=== PATIENT | female | born 1925 | race Asian ===

== ENCOUNTER 2017-08-16 16:00 | Inpatient (IN) | payer MEDICARE, MEDICAID ==
[~2017-08-16] VITALS: Ht 160 cm; Wt 72.6 kg
--- NOTE | 2017-08-16 15:54 | Emergency Room Report ---
History of Present Illness General Source: Patient, Family Member, EMS Present Illness HPI Patient is a 89-year-old female who presented after increased generalized weakness. Patient was reportedly living at home alone. The patient's son was visiting from [place]. Patient poorly had been having increased difficulty with ambulation for the past 2 weeks. Patient was noted to have some complaint of abdominal pain. Allergies: Coded Allergies: No Known Allergies (Unverified , 08/16/17) Patient History Past Medical History: see triage record Reviewed Nursing Documentation: PMH: Agreed, PSxH: Agreed Review of Systems All Other Systems: negative except mentioned in HPI Physical Exam Sp02 EP Interpretation: reviewed, normal General Appearance: normal inspection, alert, moderate distress Head: atraumatic ENT: normal ENT inspection, hearing grossly normal, normal voice Neck: normal inspection, full range of motion, supple, no bony tend Respiratory: normal inspection, lungs clear, normal breath sounds, no respiratory distress, no retraction, no wheezing Cardiovascular #1: no edema, irregularly irregular Gastrointestinal: normal inspection, normal bowel sounds, soft, no guarding, no hernia, tenderness - lower abdomen Genitourinary: no CVA tenderness Musculoskeletal: normal inspection, back normal Neurologic: normal inspection, alert, responsive, speech normal Psychiatric: normal inspection, judgement/insight normal, mood/affect normal Skin: normal inspection, normal color, no rash Medical Decision Making Diagnostic Impression: Primary Impression: Hydronephrosis Additional Impressions: Urinary retention Ovarian cyst Sepsis Lumbar compression fracture A-fib ER Course Patient presented for generalized weakness. Differential diagnosis included was not limited to anemia, urinary tract infection, electrolyte abnormality, hypothyroidism, myocardial infarction, myasthenia gravis, dehydration, among others. Because of complexity of patient's case laboratory testing and imaging studies were ordered.CT of the abdomen pelvis read by radiologist showed markedly distended bladder with mild bilateral hydronephrosis and hydroureter. There is approximately a 6.9 cm right adnexal mass. There is compression of the T11-T12 and L1 vertebrae. The patient was noted to have evidence of renal insufficiency. This maybe related the patient's hydronephrosis from bladder distention. A Joshua catheter was placed by nursing staff a large amount of urine output. The patient was discussed with Dr. Shara Pereira for inpatient management. Laboratory Tests Test 08/16/17 16:10 White Blood Count 6.6 K/UL (4.8-10.8) Red Blood Count 3.81 M/UL (4.20-5.40) L Hemoglobin 11.7 G/DL (12.0-16.0) L Hematocrit 36.7 % (37.0-47.0) L Mean Corpuscular Volume 96 FL (80-99) Mean Corpuscular Hemoglobin 30.7 PG (27.0-31.0) Mean Corpuscular Hemoglobin Concent 31.8 G/DL (32.0-36.0) L Red Cell Distribution Width 13.5 % (11.6-14.8) Platelet Count 276 K/UL (150-450) Mean Platelet Volume 6.0 FL (6.5-10.1) L Neutrophils (%) (Auto) 71.4 % (45.0-75.0) Lymphocytes (%) (Auto) 16.2 % (20.0-45.0) L Monocytes (%) (Auto) 8.9 % (1.0-10.0) Eosinophils (%) (Auto) 2.0 % (0.0-3.0) Basophils (%) (Auto) 1.5 % (0.0-2.0) Prothrombin Time 9.9 SEC (9.30-11.50) Prothrombin Time INR 0.9 (0.9-1.1) PTT 32 SEC (23-33) Sodium Level 139 mEQ/L (135-145) Potassium Level 4.1 mEQ/L (3.4-4.9) Chloride Level 98 mEQ/L (98-107) Carbon Dioxide Level 26 mEQ/L (20-30) Anion Gap 15 (5-15) Blood Urea Nitrogen 52 mg/dL (7-23) H Creatinine 2.0 mg/dL (0.5-0.9) H Estimate Glomerular Filtration Rate mL/min (>60) Glucose Level 113 mg/dL (74-106) H Lactic Acid Level 1.10 mmol/L (0.66-2.22) Calcium Level 9.4 mg/dL (8.6-10.2) Phosphorus Level 5.5 mg/dL (2.5-4.8) H Magnesium Level 2.7 mg/dL (1.7-2.5) H Total Bilirubin 0.7 mg/dL (0.0-1.2) Aspartate Amino Transferase (AST) 16 U/L (5-40) Alanine Aminotransferase (ALT) 6 U/L (3-33) Alkaline Phosphatase 94 U/L (35-104) Total Creatine Kinase 26 U/L (26-140) Creatine Kinase MB < 1.5 ng/mL (< 3.8) Creatine Kinase MB Relative Index Troponin I < 0.30 ng/mL (<=0.30) Pro-B-Type Natriuretic Peptide 99568 pg/mL (0-450) H Total Protein 8.0 g/dL (6.6-8.7) Albumin 3.5 g/dL (3.5-5.2) Globulin 4.5 g/dL Albumin/Globulin Ratio 0.7 (1.0-2.7) L EKG Diagnostic Results Rate: normal Rhythm: other - afib rate [address] ST Segments: no acute changes Rhythm Strip Diag. Results EP Interpretation: yes Rhythm: no PVC's, no ectopy, other - afib Status: unchanged Disposition: ADMITTED INPATIENT Condition: Serious JamisonShantanu Aug 16, 2017 15:54
[2017-08-16] MEDS ORDERED: POTASSIUM 25 M25 ME1 PO (16:03)
[2017-08-16] MEDS ORDERED: POTASSIUM99 M3 PO (16:03)
[2017-08-16] MEDS ORDERED: DOC-Q-LACE100 M1 ORAL (16:03)
[2017-08-16] MEDS ORDERED: XARELTO10 MG ORAL (16:03)
[2017-08-16 16:05] VITALS: BP 138/88
[2017-08-16 16:41] LABS: BASOPHILS % (AUTO) 1.5 % (0.0-2.0); LYMPHOCYTES % (AUTO) 16.2 % (20.0-45.0); MEAN CORPUSCULAR HEMOGLOBIN 30.7 PG (27.0-31.0); MEAN CORPUSCULAR HGB CONC 31.8 G/DL (32.0-36.0); MEAN CORPUSCULAR VOLUME 96 FL (80-99); MONOCYTES % (AUTO) 8.9 % (1.0-10.0); NEUTROPHILS % (AUTO) 71.4 % (45.0-75.0); PLATELET COUNT 276 K/UL (150-450); RED BLOOD COUNT 3.81 M/UL (4.20-5.40); RED CELL DISTRIBUTION WIDTH 13.5 % (11.6-14.8); WHITE BLOOD COUNT 6.6 K/UL (4.8-10.8)
--- NOTE | 2017-08-16 16:41 | Diagnostic Imaging Report ---
Indication: Altered mental status Technique: Contiguous 5 mm thick transaxial imaging of the head obtained in a Siemens Sensation [address] scanner. Soft tissue and bone windows generated. Total Dose length Product (DLP): [address] Dose Index Volume (CTDIvol): 70.38, 0.15 mGy Comparison: none Findings: There is moderate prominence of the ventricles, basal cisterns, and cerebral sulci consistent with atrophy. Moderate, nonspecific, white matter hypoattenuation is noted throughout the brain consistent with chronic small vessel disease. There is no midline shift, edema, acute hemorrhage, mass effect, or abnormal extra-axial fluid collections. Bones and extra osseous soft tissues are unremarkable. There is opacification of the left maxillary sinus. Impression: No acute intracranial bleed, mass effect or edema. Moderate atrophy of the brain. Evidence of chronic small vessel disease involving white matter tracts. Left maxillary sinusitis The CT scanner at [facility] is accredited by the [employer] and the scans are performed using dose optimization techniques as appropriate to a performed exam including Automatic Exposure control.
[2017-08-16] MEDS ORDERED: cefTRIAXone 2 GM in NS 110 ML IVPB ONE (16:45)
[2017-08-16 16:53] LABS: INR 0.9 (0.9-1.1); PROTHROMBIN TIME 9.9 SEC (9.30-11.50)
[2017-08-16 16:57] LABS: ALANINE AMINOTRANSFERASE 6 U/L (3-33); ALBUMIN/GLOBULIN RATIO 0.7 (1.0-2.7); ANION GAP 15 (5-15); ASPARTATE AMINO TRANSFERASE 16 U/L (5-40); CALCIUM 9.4 mg/dL (8.6-10.2); CARBON DIOXIDE 26 mEQ/L (20-30); CHLORIDE 98 mEQ/L (98-107); HEMOLYSIS 2; MAGNESIUM 2.7 mg/dL (1.7-2.5); PHOSPHORUS 5.5 mg/dL (2.5-4.8); POTASSIUM 4.1 mEQ/L (3.4-4.9); SODIUM 139 mEQ/L (135-145); TROPONIN I < 0.30 ng/mL (<=0.30)
[2017-08-16 17:08] LABS: CKMB < 1.5 ng/mL (< 3.8)
[2017-08-16 18:00] VITALS: BP 139/76
[2017-08-16 20:00] VITALS: BP 146/90
[2017-08-16 20:08] LABS: APPEARANCE,URINE SLIGHTLY CLOUDY; KETONES,URINE NEGATIVE (NEGATIVE); LEUKOCYTE ESTERASE ,URINE 2+ (NEGATIVE); NITRITE,URINE NEGATIVE (NEGATIVE); PH,URINE 5 (4.5-8.0); PROTEIN,URINE 1+ (NEGATIVE); UROBILINOGEN,URINE NORMAL MG/DL (0.0-1.0)
[2017-08-16 20:15] VITALS: BP 144/76
[2017-08-16 20:27] LABS: AMORPHOUS SEDIMENT,UR FEW /LPF; BACTERIA,URINE MODERATE /HPF; SQUAMOUS EPITHELIAL CELL,UR FEW /LPF (NONE/OCC)
--- NOTE | 2017-08-16 22:02 | Infectious Diseases Prog Note ---
Assessment/Plan Problems: (1) Acute pyelonephritis Assessment & Plan: will start cefepime empirically pending urine culture results (2) Maxillary sinusitis, acute Assessment & Plan: will start cefepime and metronidazol empiric treatment (3) Sepsis Assessment & Plan: due to the above, will start cefepime and metronidazol , pending blood culture results (4) Adrenal mass Assessment & Plan: recommend MRI and endocrinology eval (5) Hydronephrosis Assessment & Plan: rule out obstructive uropathy , recommend urology eval Subjective Allergies: Coded Allergies: No Known Allergies (Unverified , 08/16/17) Objective Vital Signs Last 24 Hour Vital Signs Date Time Temp Pulse Resp B/P (MAP) Pulse Ox O2 Delivery O2 Flow Rate FiO2 08/16/17 20:00 96 17 146/90 95 Room Air 08/16/17 20:00 97.9 96 19 139/76 97 Room Air 08/16/17 18:00 97.9 102 19 139/76 97 Room Air 08/16/17 16:05 97.9 103 18 138/88 97 Room Air 08/16/17 15:52 97.9 88 20 100/60 97 Room Air Height (Feet): 5 Height (Inches): 3.00 Weight (Pounds): 150 Laboratory Tests Test 08/16/17 16:10 08/16/17 19:25 White Blood Count 6.6 K/UL (4.8-10.8) Red Blood Count 3.81 M/UL (4.20-5.40) L Hemoglobin 11.7 G/DL (12.0-16.0) L Hematocrit 36.7 % (37.0-47.0) L Mean Corpuscular Volume 96 FL (80-99) Mean Corpuscular Hemoglobin 30.7 PG (27.0-31.0) Mean Corpuscular Hemoglobin Concent 31.8 G/DL (32.0-36.0) L Red Cell Distribution Width 13.5 % (11.6-14.8) Platelet Count 276 K/UL (150-450) Mean Platelet Volume 6.0 FL (6.5-10.1) L Neutrophils (%) (Auto) 71.4 % (45.0-75.0) Lymphocytes (%) (Auto) 16.2 % (20.0-45.0) L Monocytes (%) (Auto) 8.9 % (1.0-10.0) Eosinophils (%) (Auto) 2.0 % (0.0-3.0) Basophils (%) (Auto) 1.5 % (0.0-2.0) Prothrombin Time 9.9 SEC (9.30-11.50) Prothromb Time International Ratio 0.9 (0.9-1.1) Activated Partial Thromboplast Time 32 SEC (23-33) Sodium Level 139 mEQ/L (135-145) Potassium Level 4.1 mEQ/L (3.4-4.9) Chloride Level 98 mEQ/L (98-107) Carbon Dioxide Level 26 mEQ/L (20-30) Anion Gap 15 (5-15) Blood Urea Nitrogen 52 mg/dL (7-23) H Creatinine 2.0 mg/dL (0.5-0.9) H Estimat Glomerular Filtration Rate mL/min (>60) Glucose Level 113 mg/dL (74-106) H Lactic Acid Level 1.10 mmol/L (0.66-2.22) Calcium Level 9.4 mg/dL (8.6-10.2) Phosphorus Level 5.5 mg/dL (2.5-4.8) H Magnesium Level 2.7 mg/dL (1.7-2.5) H Total Bilirubin 0.7 mg/dL (0.0-1.2) Aspartate Amino Transf (AST/SGOT) 16 U/L (5-40) Alanine Aminotransferase (ALT/SGPT) 6 U/L (3-33) Alkaline Phosphatase 94 U/L (35-104) Total Creatine Kinase 26 U/L (26-140) Creatine Kinase MB < 1.5 ng/mL (< 3.8) Creatine Kinase MB Relative Index Troponin I < 0.30 ng/mL (<=0.30) Pro-B-Type Natriuretic Peptide 15174 pg/mL (0-450) H Total Protein 8.0 g/dL (6.6-8.7) Albumin 3.5 g/dL (3.5-5.2) Globulin 4.5 g/dL Albumin/Globulin Ratio 0.7 (1.0-2.7) L Urine Color Yellow Urine Appearance Slightly cloudy Urine pH 5 (4.5-8.0) Urine Specific [place] 1.015 (1.005-1.035) Urine Protein 1+ (NEGATIVE) H Urine Glucose (UA) Negative (NEGATIVE) Urine Ketones Negative (NEGATIVE) Urine Occult Blood 4+ (NEGATIVE) H Urine Nitrite Negative (NEGATIVE) Urine Bilirubin Negative (NEGATIVE) Urine Urobilinogen Normal MG/DL (0.0-1.0) Urine Leukocyte Esterase 2+ (NEGATIVE) H Urine RBC 10-15 /HPF (0 - 2) H Urine WBC 5-10 /HPF (0 - 2) H Urine Squamous Epithelial Cells Few /LPF (NONE/OCC) Urine Amorphous Sediment Few /LPF (NONE) H Urine Bacteria Moderate /HPF (NONE) H Diann Delgadillo M.D. Aug 16, 2017 22:02
--- NOTE | 2017-08-16 22:44 | Cardiology Progress Note ---
Assessment/Plan Assessment/Plan The patient is seen and examined, full consult note will be dictated. Objective Last 24 Hour Vital Signs Date Time Temp Pulse Resp B/P (MAP) Pulse Ox O2 Delivery O2 Flow Rate FiO2 08/16/17 20:00 96 17 146/90 95 Room Air 08/16/17 20:00 97.9 96 19 139/76 97 Room Air 08/16/17 18:00 97.9 102 19 139/76 97 Room Air 08/16/17 16:05 97.9 103 18 138/88 97 Room Air 08/16/17 15:52 97.9 88 20 100/60 97 Room Air Intake and Output 08/16/17 08/17/17 19:00 07:00 Intake Total 1110 ml Output Total 1100 ml Balance 1110 ml -1100 ml Intake IV Total 1110 ml Output Urine Total 1100 ml Laboratory Tests Test 08/16/17 16:10 08/16/17 19:25 White Blood Count 6.6 K/UL (4.8-10.8) Red Blood Count 3.81 M/UL (4.20-5.40) L Hemoglobin 11.7 G/DL (12.0-16.0) L Hematocrit 36.7 % (37.0-47.0) L Mean Corpuscular Volume 96 FL (80-99) Mean Corpuscular Hemoglobin 30.7 PG (27.0-31.0) Mean Corpuscular Hemoglobin Concent 31.8 G/DL (32.0-36.0) L Red Cell Distribution Width 13.5 % (11.6-14.8) Platelet Count 276 K/UL (150-450) Mean Platelet Volume 6.0 FL (6.5-10.1) L Neutrophils (%) (Auto) 71.4 % (45.0-75.0) Lymphocytes (%) (Auto) 16.2 % (20.0-45.0) L Monocytes (%) (Auto) 8.9 % (1.0-10.0) Eosinophils (%) (Auto) 2.0 % (0.0-3.0) Basophils (%) (Auto) 1.5 % (0.0-2.0) Prothrombin Time 9.9 SEC (9.30-11.50) Prothromb Time International Ratio 0.9 (0.9-1.1) Activated Partial Thromboplast Time 32 SEC (23-33) Sodium Level 139 mEQ/L (135-145) Potassium Level 4.1 mEQ/L (3.4-4.9) Chloride Level 98 mEQ/L (98-107) Carbon Dioxide Level 26 mEQ/L (20-30) Anion Gap 15 (5-15) Blood Urea Nitrogen 52 mg/dL (7-23) H Creatinine 2.0 mg/dL (0.5-0.9) H Estimat Glomerular Filtration Rate mL/min (>60) Glucose Level 113 mg/dL (74-106) H Lactic Acid Level 1.10 mmol/L (0.66-2.22) Calcium Level 9.4 mg/dL (8.6-10.2) Phosphorus Level 5.5 mg/dL (2.5-4.8) H Magnesium Level 2.7 mg/dL (1.7-2.5) H Total Bilirubin 0.7 mg/dL (0.0-1.2) Aspartate Amino Transf (AST/SGOT) 16 U/L (5-40) Alanine Aminotransferase (ALT/SGPT) 6 U/L (3-33) Alkaline Phosphatase 94 U/L (35-104) Total Creatine Kinase 26 U/L (26-140) Creatine Kinase MB < 1.5 ng/mL (< 3.8) Creatine Kinase MB Relative Index Troponin I < 0.30 ng/mL (<=0.30) Pro-B-Type Natriuretic Peptide 15352 pg/mL (0-450) H Total Protein 8.0 g/dL (6.6-8.7) Albumin 3.5 g/dL (3.5-5.2) Globulin 4.5 g/dL Albumin/Globulin Ratio 0.7 (1.0-2.7) L Urine Color Yellow Urine Appearance Slightly cloudy Urine pH 5 (4.5-8.0) Urine Specific [place] 1.015 (1.005-1.035) Urine Protein 1+ (NEGATIVE) H Urine Glucose (UA) Negative (NEGATIVE) Urine Ketones Negative (NEGATIVE) Urine Occult Blood 4+ (NEGATIVE) H Urine Nitrite Negative (NEGATIVE) Urine Bilirubin Negative (NEGATIVE) Urine Urobilinogen Normal MG/DL (0.0-1.0) Urine Leukocyte Esterase 2+ (NEGATIVE) H Urine RBC 10-15 /HPF (0 - 2) H Urine WBC 5-10 /HPF (0 - 2) H Urine Squamous Epithelial Cells Few /LPF (NONE/OCC) Urine Amorphous Sediment Few /LPF (NONE) H Urine Bacteria Moderate /HPF (NONE) H SARITA DOTSON Aug 16, 2017 22:44
[2017-08-16] MEDS: metroNIDAZOLE 500mg tab ORAL SCH (22:56)
[2017-08-17] VITALS: BP 150/78
[2017-08-17 04:00] VITALS: BP 136/75
[2017-08-17] MEDS: metroNIDAZOLE 500mg tab ORAL SCH ×3 (06:20→21:53)
[2017-08-17 08:28] LABS: BASOPHILS % (AUTO) 1.8 % (0.0-2.0); LYMPHOCYTES % (AUTO) 16.2 % (20.0-45.0); MEAN CORPUSCULAR HEMOGLOBIN 31.4 PG (27.0-31.0); MEAN CORPUSCULAR HGB CONC 32.5 G/DL (32.0-36.0); MEAN CORPUSCULAR VOLUME 97 FL (80-99); MEAN PLATELET VOLUME 6.5 FL (6.5-10.1); MONOCYTES % (AUTO) 6.6 % (1.0-10.0); NEUTROPHILS % (AUTO) 73.4 % (45.0-75.0); PLATELET COUNT 276 K/UL (150-450); RED BLOOD COUNT 3.97 M/UL (4.20-5.40); RED CELL DISTRIBUTION WIDTH 13.8 % (11.6-14.8); WHITE BLOOD COUNT 5.4 K/UL (4.8-10.8)
[2017-08-17 08:32] VITALS: BP 143/71
[2017-08-17 08:35] LABS: ALANINE AMINOTRANSFERASE 6 U/L (3-33); ALBUMIN/GLOBULIN RATIO 0.6 (1.0-2.7); ANION GAP 13 (5-15); ASPARTATE AMINO TRANSFERASE 18 U/L (5-40); CARBON DIOXIDE 25 mEQ/L (20-30); CHLORIDE 98 mEQ/L (98-107); CREATININE 1.6 mg/dL (0.5-0.9); HEMOLYSIS 11; POTASSIUM 3.7 mEQ/L (3.4-4.9); SODIUM 136 mEQ/L (135-145); TOTAL PROTEIN 7.8 g/dL (6.6-8.7)
[2017-08-17] MEDS ORDERED: Cefepime HCl 2 GM in D5W 110 ML IVPB SCH (09:00)
--- NOTE | 2017-08-17 10:58 | Diagnostic Imaging Report ---
Indication: Dyspnea Comparison: None A single view chest radiograph was obtained. Findings: Interstitial edema is present with prominent vascularity and heart size. The bones are moderately osteopenic. Aorta is calcified. Impression: Interstitial edema
[2017-08-17] MEDS: Cefepime 1gm in D5W 55ml IVPB SCH (11:32)
[2017-08-17 11:36] VITALS: BP 155/95
--- NOTE | 2017-08-17 11:44 | Consultation ---
Consult Note Consult Note asked to eval for renal failure- HPI Patient is a 89-year-old female who presented after increased generalized weakness. Patient was reportedly living at home alone. The patient's son was visiting from [place]. Patient poorly had been having increased difficulty with ambulation for the past 2 weeks. Patient was noted to have some complaint of abdominal pain. Allergies: Coded Allergies: No Known Allergies (Unverified , 08/16/17) examined- data reviewed Assessment/Plan status; - Renal failure due to Hydronephrosis , Urinary retention and Ovarian cysts - Acute pyelonephritis - Maxillary sinusitis, acute - Sepsis - Adrenal mass - Hydronephrosis - Lumbar compression Fx - At fib Plan: Slow hydrate- avoid nephrotoxics- Gastric support- Keep BP and BS in check per orders THALIA MOREIRA Aug 17, 2017 11:44
--- NOTE | 2017-08-17 12:18 | Consultation ---
History of Present Illness General Date patient seen: Aug 17, 2017 Chief Complaint: General Complaint Present Illness Allergies: Coded Allergies: No Known Allergies (Unverified , 08/16/17) Medication History Discontinued Medications Docusate Sodium (Doc-Q-Lace), 100 MG ORAL TWICE A DAY, (Reported) Discontinued Reason: MD discontinued med Potassium Bicarbonate/Cit Ac (Potassium 25 Meq Tablet Eff), 8 MEQ PO EVERY OTHER DAY, (Reported) Discontinued Reason: MD discontinued med Potassium Gluconate (Potassium), 99 MG PO, (Reported) Discontinued Reason: MD discontinued med Rivaroxaban (Xarelto*), 15 MG ORAL DAILY, (Reported) Discontinued Reason: MD discontinued med Patient History Healthcare decision maker Resuscitation status Full Code Advanced Directive on File Physical Exam Last 24 Hour Vital Signs Date Time Temp Pulse Resp B/P (MAP) Pulse Ox O2 Delivery O2 Flow Rate FiO2 08/17/17 11:36 97.0 75 18 155/95 97 Room Air 08/17/17 08:32 97.0 91 20 143/71 95 Room Air 08/17/17 08:07 84 08/17/17 04:00 97.7 84 20 136/75 95 Room Air 08/17/17 04:00 101 08/17/17 00:00 86 08/17/17 00:00 97.5 69 18 150/78 92 Room Air 08/16/17 20:27 93 08/16/17 20:15 97.7 96 20 144/76 Room Air 08/16/17 20:00 96 17 146/90 95 Room Air 08/16/17 20:00 97.9 96 19 139/76 97 Room Air 08/16/17 18:00 97.9 102 19 139/76 97 Room Air 08/16/17 16:05 97.9 103 18 138/88 97 Room Air 08/16/17 15:52 97.9 88 20 100/60 97 Room Air Intake and Output 08/17/17 08/18/17 19:00 07:00 Intake Total 120 ml Balance 120 ml Intake Oral 120 ml Laboratory Tests Test 08/16/17 16:10 08/16/17 19:25 08/17/17 07:50 White Blood Count 6.6 K/UL (4.8-10.8) 5.4 K/UL (4.8-10.8) Red Blood Count 3.81 M/UL (4.20-5.40) L 3.97 M/UL (4.20-5.40) L Hemoglobin 11.7 G/DL (12.0-16.0) L 12.5 G/DL (12.0-16.0) Hematocrit 36.7 % (37.0-47.0) L 38.4 % (37.0-47.0) Mean Corpuscular Volume 96 FL (80-99) 97 FL (80-99) Mean Corpuscular Hemoglobin 30.7 PG (27.0-31.0) 31.4 PG (27.0-31.0) H Mean Corpuscular Hemoglobin Concent 31.8 G/DL (32.0-36.0) L 32.5 G/DL (32.0-36.0) Red Cell Distribution Width 13.5 % (11.6-14.8) 13.8 % (11.6-14.8) Platelet Count 276 K/UL (150-450) 276 K/UL (150-450) Mean Platelet Volume 6.0 FL (6.5-10.1) L 6.5 FL (6.5-10.1) Neutrophils (%) (Auto) 71.4 % (45.0-75.0) 73.4 % (45.0-75.0) Lymphocytes (%) (Auto) 16.2 % (20.0-45.0) L 16.2 % (20.0-45.0) L Monocytes (%) (Auto) 8.9 % (1.0-10.0) 6.6 % (1.0-10.0) Eosinophils (%) (Auto) 2.0 % (0.0-3.0) 2.0 % (0.0-3.0) Basophils (%) (Auto) 1.5 % (0.0-2.0) 1.8 % (0.0-2.0) Prothrombin Time 9.9 SEC (9.30-11.50) Prothromb Time International Ratio 0.9 (0.9-1.1) Activated Partial Thromboplast Time 32 SEC (23-33) Sodium Level 139 mEQ/L (135-145) 136 mEQ/L (135-145) Potassium Level 4.1 mEQ/L (3.4-4.9) 3.7 mEQ/L (3.4-4.9) Chloride Level 98 mEQ/L (98-107) 98 mEQ/L (98-107) Carbon Dioxide Level 26 mEQ/L (20-30) 25 mEQ/L (20-30) Anion Gap 15 (5-15) 13 (5-15) Blood Urea Nitrogen 52 mg/dL (7-23) H 41 mg/dL (7-23) H Creatinine 2.0 mg/dL (0.5-0.9) H 1.6 mg/dL (0.5-0.9) H Estimat Glomerular Filtration Rate mL/min (>60) mL/min (>60) Glucose Level 113 mg/dL (74-106) H 126 mg/dL (74-106) H Lactic Acid Level 1.10 mmol/L (0.66-2.22) Calcium Level 9.4 mg/dL (8.6-10.2) 9.0 mg/dL (8.6-10.2) Phosphorus Level 5.5 mg/dL (2.5-4.8) H Magnesium Level 2.7 mg/dL (1.7-2.5) H Total Bilirubin 0.7 mg/dL (0.0-1.2) 0.5 mg/dL (0.0-1.2) Aspartate Amino Transf (AST/SGOT) 16 U/L (5-40) 18 U/L (5-40) Alanine Aminotransferase (ALT/SGPT) 6 U/L (3-33) 6 U/L (3-33) Alkaline Phosphatase 94 U/L (35-104) 95 U/L (35-104) Total Creatine Kinase 26 U/L (26-140) Creatine Kinase MB < 1.5 ng/mL (< 3.8) Creatine Kinase MB Relative Index Troponin I < 0.30 ng/mL (<=0.30) Pro-B-Type Natriuretic Peptide 16342 pg/mL (0-450) H Total Protein 8.0 g/dL (6.6-8.7) 7.8 g/dL (6.6-8.7) Albumin 3.5 g/dL (3.5-5.2) 3.1 g/dL (3.5-5.2) L Globulin 4.5 g/dL 4.7 g/dL Albumin/Globulin Ratio 0.7 (1.0-2.7) L 0.6 (1.0-2.7) L Urine Color Yellow Urine Appearance Slightly cloudy Urine pH 5 (4.5-8.0) Urine Specific [place] 1.015 (1.005-1.035) Urine Protein 1+ (NEGATIVE) H Urine Glucose (UA) Negative (NEGATIVE) Urine Ketones Negative (NEGATIVE) Urine Occult Blood 4+ (NEGATIVE) H Urine Nitrite Negative (NEGATIVE) Urine Bilirubin Negative (NEGATIVE) Urine Urobilinogen Normal MG/DL (0.0-1.0) Urine Leukocyte Esterase 2+ (NEGATIVE) H Urine RBC 10-15 /HPF (0 - 2) H Urine WBC 5-10 /HPF (0 - 2) H Urine Squamous Epithelial Cells Few /LPF (NONE/OCC) Urine Amorphous Sediment Few /LPF (NONE) H Urine Bacteria Moderate /HPF (NONE) H Microbiology Date/Time Source Procedure Growth Status 08/16/17 19:25 Urine,Clean Catch Urine Culture - Preliminary NO GROWTH Resulted Height (Feet): 5 Height (Inches): 3.00 Weight (Pounds): 160 Medications Current Medications Medications (Trade) Dose Ordered Sig/Trisha Route PRN Reason Start Time Stop Time Status Last Admin Dose Admin Acetaminophen (Tylenol) 650 mg Q4H PRN ORAL Mild Pain/Temp > 100.5 08/16/17 23:15 09/15/17 23:14 Amlodipine Besylate (Norvasc) 5 mg DAILY ORAL 08/17/17 12:00 09/16/17 11:59 Cefepime HCl 1 gm/ Dextrose 55 ml @ 110 mls/hr Q24H IVPB 08/17/17 09:00 08/24/17 08:59 08/17/17 11:32 Dextrose (Dextrose 50%) STAT PRN IV Hypoglycemia 08/16/17 23:15 09/15/17 23:14 Docusate Sodium (Colace) 100 mg THREE TIMES A DAY ORAL 08/17/17 13:00 09/16/17 12:59 Metronidazole (Flagyl) 500 mg Q8HR ORAL 08/16/17 22:15 08/23/17 22:14 08/17/17 06:20 Pantoprazole (Protonix) 40 mg DAILY ORAL 08/17/17 12:05 09/16/17 12:04 Sodium Chloride 1,000 ml @ 50 mls/hr Q20H IV 08/17/17 12:00 09/16/17 11:59 Assessment/Plan Assessment/Plan (1) Hydronephrosis (2) Lumbar compression fracture (3) Generalized weakness Seen dictated FELISHA TRAN Aug 17, 2017 12:18
[2017-08-17] MEDS: Docusate 100mg cap ORAL SCH ×2 (13:23→18:26)
--- NOTE | 2017-08-17 15:11 | Infectious Diseases Prog Note ---
Assessment/Plan Problems: (1) Acute pyelonephritis Assessment & Plan: on cefepime empirically pending urine culture results (2) Maxillary sinusitis, acute Assessment & Plan: on cefepime and metronidazol empiric treatment (3) Sepsis Assessment & Plan: due to the above, continue cefepime and metronidazol , pending blood culture results (4) Adrenal mass Assessment & Plan: recommend MRI and endocrinology eval (5) Hydronephrosis Assessment & Plan: rule out obstructive uropathy , recommend urology eval Subjective ROS Limited/Unobtainable: Yes Allergies: Coded Allergies: No Known Allergies (Unverified , 08/16/17) Subjective she was awake, and comfortable, up in bed, not in distress, afebrile Objective Vital Signs Last 24 Hour Vital Signs Date Time Temp Pulse Resp B/P (MAP) Pulse Ox O2 Delivery O2 Flow Rate FiO2 08/17/17 13:31 85 155/85 08/17/17 11:36 97.0 75 18 155/95 97 Room Air 08/17/17 08:32 97.0 91 20 143/71 95 Room Air 08/17/17 08:07 84 08/17/17 04:00 97.7 84 20 136/75 95 Room Air 08/17/17 04:00 101 08/17/17 00:00 86 08/17/17 00:00 97.5 69 18 150/78 92 Room Air 08/16/17 20:27 93 08/16/17 20:15 97.7 96 20 144/76 Room Air 08/16/17 20:00 96 17 146/90 95 Room Air 08/16/17 20:00 97.9 96 19 139/76 97 Room Air 08/16/17 18:00 97.9 102 19 139/76 97 Room Air 08/16/17 16:05 97.9 103 18 138/88 97 Room Air 08/16/17 15:52 97.9 88 20 100/60 97 Room Air Height (Feet): 5 Height (Inches): 3.00 Weight (Pounds): 160 General Appearance: WD/WN, no acute distress HEENT: normocephalic, atraumatic, anicteric, mucous membranes moist, EOMI, pharynx normal, supple, no JVD Respiratory/Chest: chest wall non-tender, lungs clear, normal breath sounds, no respiratory distress, no accessory muscle use Cardiovascular: normal peripheral pulses, normal rate, regular rhythm, no gallop/murmur, no JVD Abdomen: normal bowel sounds, soft, non tender, no organomegaly, non distended , no mass Extremities: no cyanosis, no clubbing Skin: no rash, no lesions, no ulcers Neurologic/Psychiatric: alert Microbiology Date/Time Source Procedure Growth Status 08/16/17 19:25 Urine,Clean Catch Urine Culture - Preliminary NO GROWTH Resulted Laboratory Tests Test 08/16/17 16:10 08/16/17 19:25 08/17/17 07:50 White Blood Count 6.6 K/UL (4.8-10.8) 5.4 K/UL (4.8-10.8) Red Blood Count 3.81 M/UL (4.20-5.40) L 3.97 M/UL (4.20-5.40) L Hemoglobin 11.7 G/DL (12.0-16.0) L 12.5 G/DL (12.0-16.0) Hematocrit 36.7 % (37.0-47.0) L 38.4 % (37.0-47.0) Mean Corpuscular Volume 96 FL (80-99) 97 FL (80-99) Mean Corpuscular Hemoglobin 30.7 PG (27.0-31.0) 31.4 PG (27.0-31.0) H Mean Corpuscular Hemoglobin Concent 31.8 G/DL (32.0-36.0) L 32.5 G/DL (32.0-36.0) Red Cell Distribution Width 13.5 % (11.6-14.8) 13.8 % (11.6-14.8) Platelet Count 276 K/UL (150-450) 276 K/UL (150-450) Mean Platelet Volume 6.0 FL (6.5-10.1) L 6.5 FL (6.5-10.1) Neutrophils (%) (Auto) 71.4 % (45.0-75.0) 73.4 % (45.0-75.0) Lymphocytes (%) (Auto) 16.2 % (20.0-45.0) L 16.2 % (20.0-45.0) L Monocytes (%) (Auto) 8.9 % (1.0-10.0) 6.6 % (1.0-10.0) Eosinophils (%) (Auto) 2.0 % (0.0-3.0) 2.0 % (0.0-3.0) Basophils (%) (Auto) 1.5 % (0.0-2.0) 1.8 % (0.0-2.0) Prothrombin Time 9.9 SEC (9.30-11.50) Prothromb Time International Ratio 0.9 (0.9-1.1) Activated Partial Thromboplast Time 32 SEC (23-33) Sodium Level 139 mEQ/L (135-145) 136 mEQ/L (135-145) Potassium Level 4.1 mEQ/L (3.4-4.9) 3.7 mEQ/L (3.4-4.9) Chloride Level 98 mEQ/L (98-107) 98 mEQ/L (98-107) Carbon Dioxide Level 26 mEQ/L (20-30) 25 mEQ/L (20-30) Anion Gap 15 (5-15) 13 (5-15) Blood Urea Nitrogen 52 mg/dL (7-23) H 41 mg/dL (7-23) H Creatinine 2.0 mg/dL (0.5-0.9) H 1.6 mg/dL (0.5-0.9) H Estimat Glomerular Filtration Rate mL/min (>60) mL/min (>60) Glucose Level 113 mg/dL (74-106) H 126 mg/dL (74-106) H Lactic Acid Level 1.10 mmol/L (0.66-2.22) Calcium Level 9.4 mg/dL (8.6-10.2) 9.0 mg/dL (8.6-10.2) Phosphorus Level 5.5 mg/dL (2.5-4.8) H Magnesium Level 2.7 mg/dL (1.7-2.5) H Total Bilirubin 0.7 mg/dL (0.0-1.2) 0.5 mg/dL (0.0-1.2) Aspartate Amino Transf (AST/SGOT) 16 U/L (5-40) 18 U/L (5-40) Alanine Aminotransferase (ALT/SGPT) 6 U/L (3-33) 6 U/L (3-33) Alkaline Phosphatase 94 U/L (35-104) 95 U/L (35-104) Total Creatine Kinase 26 U/L (26-140) Creatine Kinase MB < 1.5 ng/mL (< 3.8) Creatine Kinase MB Relative Index Troponin I < 0.30 ng/mL (<=0.30) Pro-B-Type Natriuretic Peptide 08415 pg/mL (0-450) H Total Protein 8.0 g/dL (6.6-8.7) 7.8 g/dL (6.6-8.7) Albumin 3.5 g/dL (3.5-5.2) 3.1 g/dL (3.5-5.2) L Globulin 4.5 g/dL 4.7 g/dL Albumin/Globulin Ratio 0.7 (1.0-2.7) L 0.6 (1.0-2.7) L Urine Color Yellow Urine Appearance Slightly cloudy Urine pH 5 (4.5-8.0) Urine Specific [place] 1.015 (1.005-1.035) Urine Protein 1+ (NEGATIVE) H Urine Glucose (UA) Negative (NEGATIVE) Urine Ketones Negative (NEGATIVE) Urine Occult Blood 4+ (NEGATIVE) H Urine Nitrite Negative (NEGATIVE) Urine Bilirubin Negative (NEGATIVE) Urine Urobilinogen Normal MG/DL (0.0-1.0) Urine Leukocyte Esterase 2+ (NEGATIVE) H Urine RBC 10-15 /HPF (0 - 2) H Urine WBC 5-10 /HPF (0 - 2) H Urine Squamous Epithelial Cells Few /LPF (NONE/OCC) Urine Amorphous Sediment Few /LPF (NONE) H Urine Bacteria Moderate /HPF (NONE) H Current Medications Medications (Trade) Dose Ordered Sig/Trisha Route PRN Reason Start Time Stop Time Status Last Admin Dose Admin Acetaminophen (Tylenol) 650 mg Q4H PRN ORAL Mild Pain/Temp > 100.5 08/16/17 23:15 09/15/17 23:14 Amlodipine Besylate (Norvasc) 5 mg DAILY ORAL 08/17/17 12:00 09/16/17 11:59 08/17/17 13:31 Cefepime HCl 1 gm/ Dextrose 55 ml @ 110 mls/hr Q24H IVPB 10/4/17 09:00 08/24/17 08:59 08/17/17 11:32 Dextrose (Dextrose 50%) STAT PRN IV Hypoglycemia 08/16/17 23:15 09/15/17 23:14 Docusate Sodium (Colace) 100 mg THREE TIMES A DAY ORAL 08/17/17 13:00 09/16/17 12:59 08/17/17 13:23 Metronidazole (Flagyl) 500 mg Q8HR ORAL 08/16/17 22:15 08/23/17 22:14 08/17/17 13:42 Pantoprazole (Protonix) 40 mg DAILY ORAL 08/17/17 12:05 09/16/17 12:04 08/17/17 13:23 Sodium Chloride 1,000 ml @ 50 mls/hr Q20H IV 08/17/17 12:00 09/16/17 11:59 08/17/17 13:24 Diann Delgadillo M.D. Aug 17, 2017 15:11
[2017-08-17 16:00] VITALS: BP 154/60
--- NOTE | 2017-08-17 17:48 | Consultation ---
History of Present Illness General Date patient seen: Aug 17, 2017 Time patient seen: 17:43 Chief Complaint: Urinary retention Referring physician: Daniel Reason for Consultation: retention, bilateral hydro nephrosis Present Illness HPI patient with progressive weakness, difficulty ambulation. Found to be in retention after CT exam. No real complaints outside of weakness. Allergies: Coded Allergies: No Known Allergies (Unverified , 08/16/17) Medication History Discontinued Medications Docusate Sodium (Doc-Q-Lace), 100 MG ORAL TWICE A DAY, (Reported) Discontinued Reason: MD discontinued med Potassium Bicarbonate/Cit Ac (Potassium 25 Meq Tablet Eff), 8 MEQ PO EVERY OTHER DAY, (Reported) Discontinued Reason: MD discontinued med Potassium Gluconate (Potassium), 99 MG PO, (Reported) Discontinued Reason: MD discontinued med Rivaroxaban (Xarelto*), 15 MG ORAL DAILY, (Reported) Discontinued Reason: MD discontinued med Patient History Limited by: medical condition History Provided By: Medical Record Healthcare decision maker Resuscitation status Full Code Advanced Directive on File Past Medical/Surgical History Past Medical/Surgical History: (1) Ovarian cyst (2) A-fib Review of Systems Constitutional: Reports: weakness Eye: Denies: no symptoms, see HPI, eye pain, blurred vision, tearing, double vision, nose pain, nose congestion, acuity changes, discharge, other ENT: Denies: no symptoms, see HPI, ear pain, ear discharge, nose pain, nose congestion, throat pain, throat swelling, mouth pain, hearing loss, nasal discharge, other Respiratory: Denies: no symptoms, see HPI, cough, orthopnea, shortness of breath, stridor, wheezing, TODD, sputum, other Cardiovascular: Denies: no symptoms, see HPI, chest pain, edema, palpitations, syncope, PND, other Gastrointestinal: Denies: no symptoms, see HPI, abdominal pain, constipation, diarrhea, nausea, vomiting, melena, hematemesis, other Genitourinary: Reports: dysuria Musculoskeletal: Denies: no symptoms, see HPI, back pain, gout, joint pain, joint swelling, muscle pain, muscle stiffness, other Skin: Denies: no symptoms, see HPI, rash, change in color, change in hair/nails , dryness, lesions, other Psychiatric: Denies: no symptoms, see HPI, prior hx, anxiety, depressed feelings, emotional problems, SI, HI, hallucinations, other Neurological: Denies: no symptoms, see HPI, headache, numbness, paresthesia, seizure, tingling, tremors, focal weakness, syncope, dizziness, other Endocrine: Denies: no symptoms, see HPI, excessive sweating, flushing, intolerance to temperature, increased thirst, increased urine, unexplained weight loss, other Hematologic/Lymphatic: Denies: no symptoms, see HPI, anemia, blood clots, easy bleeding, easy bruising, swollen glands, diathesis, other Physical Exam General Appearance: mild distress Respiratory/Chest: normal breath sounds Cardiovascular/Chest: normal rate, regular rhythm Abdomen: non tender, soft Genitourinary/Rectal: bill Neurologic: alert Last 24 Hour Vital Signs Date Time Temp Pulse Resp B/P (MAP) Pulse Ox O2 Delivery O2 Flow Rate FiO2 08/17/17 16:00 97.2 65 18 154/60 97 Room Air 08/17/17 13:31 85 155/85 08/17/17 11:49 86 08/17/17 11:36 97.0 75 18 155/95 97 Room Air 08/17/17 08:32 97.0 91 20 143/71 95 Room Air 08/17/17 08:07 84 08/17/17 04:00 97.7 84 20 136/75 95 Room Air 08/17/17 04:00 101 08/17/17 00:00 86 08/17/17 00:00 97.5 69 18 150/78 92 Room Air 08/16/17 20:27 93 08/16/17 20:15 97.7 96 20 144/76 Room Air 08/16/17 20:00 96 17 146/90 95 Room Air 08/16/17 20:00 97.9 96 19 139/76 97 Room Air 08/16/17 18:00 97.9 102 19 139/76 97 Room Air Intake and Output 08/17/17 08/18/17 19:00 07:00 Intake Total 240 ml Balance 240 ml Intake Oral 240 ml Laboratory Tests Test 08/16/17 19:25 08/17/17 07:50 Urine Color Yellow Urine Appearance Slightly cloudy Urine pH 5 (4.5-8.0) Urine Specific [place] 1.015 (1.005-1.035) Urine Protein 1+ (NEGATIVE) H Urine Glucose (UA) Negative (NEGATIVE) Urine Ketones Negative (NEGATIVE) Urine Occult Blood 4+ (NEGATIVE) H Urine Nitrite Negative (NEGATIVE) Urine Bilirubin Negative (NEGATIVE) Urine Urobilinogen Normal MG/DL (0.0-1.0) Urine Leukocyte Esterase 2+ (NEGATIVE) H Urine RBC 10-15 /HPF (0 - 2) H Urine WBC 5-10 /HPF (0 - 2) H Urine Squamous Epithelial Cells Few /LPF (NONE/OCC) Urine Amorphous Sediment Few /LPF (NONE) H Urine Bacteria Moderate /HPF (NONE) H White Blood Count 5.4 K/UL (4.8-10.8) Red Blood Count 3.97 M/UL (4.20-5.40) L Hemoglobin 12.5 G/DL (12.0-16.0) Hematocrit 38.4 % (37.0-47.0) Mean Corpuscular Volume 97 FL (80-99) Mean Corpuscular Hemoglobin 31.4 PG (27.0-31.0) H Mean Corpuscular Hemoglobin Concent 32.5 G/DL (32.0-36.0) Red Cell Distribution Width 13.8 % (11.6-14.8) Platelet Count 276 K/UL (150-450) Mean Platelet Volume 6.5 FL (6.5-10.1) Neutrophils (%) (Auto) 73.4 % (45.0-75.0) Lymphocytes (%) (Auto) 16.2 % (20.0-45.0) L Monocytes (%) (Auto) 6.6 % (1.0-10.0) Eosinophils (%) (Auto) 2.0 % (0.0-3.0) Basophils (%) (Auto) 1.8 % (0.0-2.0) Sodium Level 136 mEQ/L (135-145) Potassium Level 3.7 mEQ/L (3.4-4.9) Chloride Level 98 mEQ/L (98-107) Carbon Dioxide Level 25 mEQ/L (20-30) Anion Gap 13 (5-15) Blood Urea Nitrogen 41 mg/dL (7-23) H Creatinine 1.6 mg/dL (0.5-0.9) H Estimat Glomerular Filtration Rate mL/min (>60) Glucose Level 126 mg/dL (74-106) H Calcium Level 9.0 mg/dL (8.6-10.2) Total Bilirubin 0.5 mg/dL (0.0-1.2) Aspartate Amino Transf (AST/SGOT) 18 U/L (5-40) Alanine Aminotransferase (ALT/SGPT) 6 U/L (3-33) Alkaline Phosphatase 95 U/L (35-104) Total Protein 7.8 g/dL (6.6-8.7) Albumin 3.1 g/dL (3.5-5.2) L Globulin 4.7 g/dL Albumin/Globulin Ratio 0.6 (1.0-2.7) L Microbiology Date/Time Source Procedure Growth Status 08/16/17 19:25 Urine,Clean Catch Urine Culture - Preliminary NO GROWTH Resulted Height (Feet): 5 Height (Inches): 3.00 Weight (Pounds): 160 Medications Current Medications Medications (Trade) Dose Ordered Sig/Trisha Route PRN Reason Start Time Stop Time Status Last Admin Dose Admin Acetaminophen (Tylenol) 650 mg Q4H PRN ORAL Mild Pain/Temp > 100.5 08/16/17 23:15 09/15/17 23:14 Amlodipine Besylate (Norvasc) 5 mg DAILY ORAL 08/17/17 12:00 09/16/17 11:59 08/17/17 13:31 Cefepime HCl 1 gm/ Dextrose 55 ml @ 110 mls/hr Q24H IVPB 08/17/17 09:00 08/24/17 08:59 08/17/17 11:32 Dextrose (Dextrose 50%) STAT PRN IV Hypoglycemia 08/16/17 23:15 09/15/17 23:14 Docusate Sodium (Colace) 100 mg THREE TIMES A DAY ORAL 08/17/17 13:00 09/16/17 12:59 08/17/17 13:23 Metronidazole (Flagyl) 500 mg Q8HR ORAL 08/16/17 22:15 08/23/17 22:14 08/17/17 13:42 Pantoprazole (Protonix) 40 mg DAILY ORAL 08/17/17 12:05 09/16/17 12:04 08/17/17 13:23 Sodium Chloride 1,000 ml @ 50 mls/hr Q20H IV 08/17/17 12:00 09/16/17 11:59 08/17/17 13:[address] bilateral hydro, distended bladder Assessment/Plan Status: stable Assessment/Plan 89 yo female, weakness. Unclear etiology but likely causing/related to retention. Hydronephrosis secondary to poor emptying of bladder. Continue bill. Seems unlikely compression fractures could be causing neurogenic retention but will await MRI. In mean time, recommend continuing bill till creatinine nadirs. 1. continue bill 2. likely need outpatient urodynamics to evaluate for true bladder dysfunction 3. follow up urine culture. 4. likely home with bill. Brad Bravo M.D. Aug 17, 2017 17:48
[2017-08-17 20:00] VITALS: BP 141/67
--- NOTE | 2017-08-17 23:29 | Cardiology Progress Note ---
Assessment/Plan Assessment/Plan 1. Chronic atrial fibrillation, will resume Xarelto once AMBER resolved, 2D echocardiography to assess LV systolic function and LA size. 2. Acute kidney injury, due to obstructive uropathy, improving. 3. Lumbar vertebral compression fracture. Subjective Subjective Atrial fibrillation with ventricular response around 85-95. Objective Last 24 Hour Vital Signs Date Time Temp Pulse Resp B/P (MAP) Pulse Ox O2 Delivery O2 Flow Rate FiO2 08/17/17 20:00 97.7 94 22 141/67 Room Air 08/17/17 16:00 88 08/17/17 16:00 97.2 65 18 154/60 97 Room Air 08/17/17 13:31 85 155/85 08/17/17 11:49 86 08/17/17 11:36 97.0 75 18 155/95 97 Room Air 08/17/17 08:32 97.0 91 20 143/71 95 Room Air 08/17/17 08:07 84 08/17/17 04:00 97.7 84 20 136/75 95 Room Air 08/17/17 04:00 101 08/17/17 00:00 86 08/17/17 00:00 97.5 69 18 150/78 92 Room Air Intake and Output 08/17/17 08/18/17 19:00 07:00 Intake Total 645 ml Output Total 400 ml Balance 245 ml Intake Oral 340 ml IV Total 305 ml Output Urine Total 400 ml Laboratory Tests Test 08/17/17 07:50 White Blood Count 5.4 K/UL (4.8-10.8) Red Blood Count 3.97 M/UL (4.20-5.40) L Hemoglobin 12.5 G/DL (12.0-16.0) Hematocrit 38.4 % (37.0-47.0) Mean Corpuscular Volume 97 FL (80-99) Mean Corpuscular Hemoglobin 31.4 PG (27.0-31.0) H Mean Corpuscular Hemoglobin Concent 32.5 G/DL (32.0-36.0) Red Cell Distribution Width 13.8 % (11.6-14.8) Platelet Count 276 K/UL (150-450) Mean Platelet Volume 6.5 FL (6.5-10.1) Neutrophils (%) (Auto) 73.4 % (45.0-75.0) Lymphocytes (%) (Auto) 16.2 % (20.0-45.0) L Monocytes (%) (Auto) 6.6 % (1.0-10.0) Eosinophils (%) (Auto) 2.0 % (0.0-3.0) Basophils (%) (Auto) 1.8 % (0.0-2.0) Sodium Level 136 mEQ/L (135-145) Potassium Level 3.7 mEQ/L (3.4-4.9) Chloride Level 98 mEQ/L (98-107) Carbon Dioxide Level 25 mEQ/L (20-30) Anion Gap 13 (5-15) Blood Urea Nitrogen 41 mg/dL (7-23) H Creatinine 1.6 mg/dL (0.5-0.9) H Estimat Glomerular Filtration Rate mL/min (>60) Glucose Level 126 mg/dL (74-106) H Calcium Level 9.0 mg/dL (8.6-10.2) Total Bilirubin 0.5 mg/dL (0.0-1.2) Aspartate Amino Transf (AST/SGOT) 18 U/L (5-40) Alanine Aminotransferase (ALT/SGPT) 6 U/L (3-33) Alkaline Phosphatase 95 U/L (35-104) Total Protein 7.8 g/dL (6.6-8.7) Albumin 3.1 g/dL (3.5-5.2) L Globulin 4.7 g/dL Albumin/Globulin Ratio 0.6 (1.0-2.7) L Microbiology Date/Time Source Procedure Growth Status 08/16/17 19:25 Urine,Clean Catch Urine Culture - Preliminary NO GROWTH Resulted Objective HEENT: atraumatic, normocephalic, PERRLA, EOMI. Neck: Negative JVD, no carotid bruit, carotid upstroke 2+ B/L CVS: Normal S1S2, irregularly irregular rhythm, 2/6 MSM at LSB Lungs: Clear with no rales or rhonchi Gastrointestinal: normal bowel sounds, soft, no guarding, suprapubic tenderness Genitourinary: no CVA tenderness Musculoskeletal: no edema, clubbing or cyanosis. Neurologic: normal inspection, alert, responsive, speech normal SARITA DOTSON Aug 17, 2017 23:29
--- NOTE | 2017-08-17 23:45 | Consultation ---
DATE OF CONSULTATION: 08/17/2017 PAIN MANAGEMENT CONSULTATION CONSULTING PHYSICIAN: Rory Bullard M.D. REFERRING PHYSICIAN: Shara Sanchez M.D. PHYSICIAN BRANCH CHIEF: Abad Morrison CHIEF COMPLAINT: Bilateral hip pain. History Of Present Illness: This is an 89-year-old female, who is being seen on the telemetry floor of [facility] for initial comprehensive pain management consultation. The patient was admitted under the care of Dr. Sanchez due to increasing generalized weakness and difficulty with ambulation for the past two weeks, more so with walking, reporting that the pain in her hips has been over a year. It is an off and on pain that is currently rated 8. However, at this time, she is not having any pain. Pain is worse with movement, walking, and standing and is reduced with rest. Upon admission to the hospital in the ER, the patient went through a CT scan of the abdomen and pelvis and found to have T11, T12, and L1 vertebral body compression fractures. The patient had hydronephrosis with distended bladder and a right adnexal mass and urinary catheter was placed and found to have a large amount of urine output. Again, the patient at this time, is in no acute distress, however, due to compression fractures and hip pain, we will order MRI of lumbar spine to further assess for the compression fractures. PAST MEDICAL HISTORY: Weakness and hypertension. MEDICATIONS: Docusate, potassium, and Xarelto. ALLERGIES: No known drug allergies. Social History: Denies smoking tobacco, drinking alcohol, or drug abuse. Review Of Systems: Denies rash, fever, chills, sweating, dizziness, drowsiness, blurred vision, sore throat, or change in weight. No shortness of breath or chest pain. No nausea, vomiting, diarrhea, or blood in the stool or urine. No bowel or bladder incontinence. No dysuria. PHYSICAL EXAMINATION: General: Alert, awake, and oriented. The patient is Greek and is being intubated at this time. HEENT: PERRLA. Neck: Range of motion is full in all directions. No tenderness to paracervical muscles. No adenopathy. LUNGS: Clear. HEART: Regular. ABDOMEN: Obese. Back: Range of motion is decreased in flexion and extension with tenderness to paraspinal muscles. No tenderness to trapezius or rhomboid muscles. Extremities: Upper extremity range of motion is full in all directions. Motor is intact. No cyanosis. No clubbing. No edema. Sensory is intact. Reflexes are not obtainable. Lower extremity range of motion is decreased due to the patient's clinical condition. No cyanosis. No clubbing. No edema. Sensory is intact. Reflexes are not obtainable. No adenopathy. Assessment And Plan: This is an 89-year-old female with hydronephrosis, lumbar compression fracture, and generalized weakness. We will order an MRI of the lumbar spine without contrast to further assess for the compression fractures. The patient will continue on Tylenol 650 mg tablet every 8 hours as needed for pain. The patient was discussed with Dr. Bullard and Dr. Bullard concurred. We will follow the patient. Thank you very much for the courtesy of this consultation. Rory Bullard M.D. PHIL Morrison DR: JARAD JOB#: [id number] CC:
[2017-08-18] VITALS (8 sets, daily range): BP systolic 124–154; BP diastolic 69–91
--- NOTE | 2017-08-18 | History and Physical Report ---
DATE OF ADMISSION: 08/16/2017 History Of Present Illness: The patient is admitted for weakness as well as difficulty ambulating. CT of the abdomen and pelvis showed bladder distension and bilateral hydronephrosis and a 6.9 cm adnexal mass as well as compression fracture at T11/T12 and L1. The patient was complaining of back pain. The patient also speaks Serbian and does not speak [place]ian, however, does have complaint of back pain. Denies nausea, vomiting, or diarrhea. No fevers, chills, night sweats, runny nose, or cough. Past Medical History: Possible opiates, history of possible adnexal mass, history of arrhythmia, history of ovarian cyst, and hypertension. PAST SURGICAL HISTORY: The patient had cholecystectomy. MEDICATIONS: She cannot tell me the name of medications. ALLERGIES: No known allergies. SOCIAL HISTORY: Unable to obtain. FAMILY HISTORY: Noncontributory. Review Of Systems: Unable to obtain, however, does complain of back pain, but otherwise,HEENT: Denies headaches. Respiratory: Denies shortness of breath. Denies cough. Cardiovascular: Denies chest pain. Gastrointestinal: Denies nausea, vomiting, or diarrhea. She does have back pain. Central Nervous System: No change in vision or speech pattern, however, the patient is a relatively poor historian. PHYSICAL EXAMINATION: Vital Signs: Temperature 97.7 degrees, pulse is 84, and blood pressure is 136/75. HEENT: PERRLA. NECK: Supple without lymphadenopathy. CHEST: Clear to auscultation. Gastrointestinal: Soft, nontender, and nondistended. No organomegaly. Extremities: No edema. Reflexes are equal on both sides. Moves all four extremities. NEUROLOGIC: Oriented to name. Laboratory Data: WBC of 6.6, hemoglobin 11.7, platelet count 276,000. Sodium 139, potassium 4.1, BUN of 52, creatinine 2, and glucose of 113, and also has elevated BNP of 15,420. ASSESSMENT AND PLAN: 1. Acute renal failure. 2. Dehydration. 3. Generalized weakness. 4. Difficulty ambulating. 5. Bladder distension, bilateral hydronephrosis, and adnexal mass. 6. Compression fracture at T1 as well as L1. Plan: I have asked Dr. Ruiz, Dr. Rhodes, Dr. Bullard, Dr. Gomez, Dr. Bravo, and Dr. Delgadillo to see the patient for the above-mentioned diagnoses and treatment as well as for possible UTI. Shara Sanchez M.D. DR: KAREN JOB#: [id number] CC:
--- NOTE | 2017-08-18 01:00 | Consultation ---
DATE OF CONSULTATION: 08/17/2017 INFECTIOUS DISEASE CONSULTATION CONSULTING PHYSICIAN: Diann Delgadillo M.D. REQUESTING PHYSICIAN: Shara Sanchez M.D. Reason For Consultation: Acute pyelonephritis, sepsis, recommendation for antibiotic treatment with possible sinusitis. History Of Present Illness: The patient is an 89-year-old female with past medical history unknown, who presented to [facility]. She was brought in from her own home by her son for generalized weakness. His son was visiting from [place]. The patient has been having difficulty ambulation for over 2 weeks. She had some abdominal discomfort as per the son. In the emergency room, the patient was found to have significant hydronephrosis with urine retention and ovarian cyst. She also had significant urinary tract infection, so she was started on IV antibiotic therapy and I was consulted by the primary provider for antibiotic treatment and further management. As of note, the patient is nonverbal, demented, cannot provide any history. History was mainly obtained from the medical record and nursing staff. PAST MEDICAL HISTORY: Undocumented in the record. PAST SURGICAL HISTORY: Unclear. ALLERGIES: No known drug allergy. Medications: The patient received ceftriaxone in the emergency room. For the rest of the medications, please refer to MAR. FAMILY HISTORY: Unable to obtain. Social History: The patient lives alone at home. No recent drugs, tobacco, or alcohol. Review Of Systems: Unable to obtain at this point. The patient cannot provide any history. PHYSICAL EXAMINATION: Vital Signs: Temperature 97.9, pulse 102, respirations 19, blood pressure 139/76, and pulse oximetry 97% on room air. General: An elderly female, lying in bed, awake, alert, comfortable, nonverbal, not in distress. HEENT: Normocephalic and atraumatic. Pupils are reactive to light. Moist oral mucosa. NECK: Supple. No lymphadenopathy. CARDIOVASCULAR: Regular rate and rhythm. No murmur or gallop. Lungs: She had diminished breathing sounds at the bases. No wheezing or rhonchi. Abdomen: Soft, nontender, and nondistended. Positive bowel sounds. No hepatosplenomegaly or ascites. EXTREMITIES: No edema or cyanosis. SKIN: No rash or hives. Laboratory Data: Labs showed white count of 6.6, hemoglobin of 11.7, and platelet count of 276,000. BUN of 52 and creatinine of 2. AST of 16 and ALT of 6. Urinalysis showed +2 leukocyte esterase, WBC 5 to 10, and moderate amount of bacteria. MICROBIOLOGY: Pending so far. Imaging Studies: Chest x-ray showed interstitial edema. Head CT scan showed no intracranial bleed, mass effect, or edema. Moderate atrophy of the brain. Left maxillary sinusitis. ASSESSMENT AND RECOMMENDATION: 1. Acute pyelonephritis. We will start cefepime empiric treatment pending urine culture results. Suspect due to obstructive uropathy and hydronephrosis. 2. Maxillary sinusitis. We will start cefepime and metronidazole empiric treatment. Evidence on CT scan of the head. 3. Sepsis due to the above. We will start cefepime and metronidazole pending blood culture results. 4. Adrenal mass. Recommend MRI and endocrinology evaluation. 5. Hydronephrosis, rule out obstructive uropathy. Recommend urology evaluation and ultrasound. Thank you for the consult. Infectious diseases will continue to follow. Diann Delgadillo M.D. DR: CONNIE JOB#: [id number] CC:
[2017-08-18] MEDS ORDERED: 1/2 NS 1000ml 250 ML IV ONE (04:00)
[2017-08-18] MEDS: metroNIDAZOLE 500mg tab ORAL SCH ×3 (06:01→21:48)
[2017-08-18] MEDS: Cefepime 1gm in D5W 55ml IVPB SCH (08:30)
[2017-08-18] MEDS: Docusate 100mg cap ORAL SCH ×3 (08:30→18:19)
[2017-08-18] MEDS ORDERED: Metoprolol Succinate XL 50mg tab ORAL SCH (09:00)
--- NOTE | 2017-08-18 09:50 | Diagnostic Imaging Report ---
Indication: Back pain Technique: MRI examination of the Lumbar spine was performed in a 1.5 Bambi magnet. Sequences obtained include sagittal and axial T1 and T2 fast spin echo, and sagittal STIR. No IV gadolinium was given Comparison: none Findings: There is evidence of an acute vertebral compression fracture involving the T11 vertebra. This is probably best demonstrated on T2-weighted images which shows a linear slightly oblique a low signal intensity focus through the vertebral body with surrounding T1 hypointense/T2 hyperintense edema. There is mild loss of height of the vertebral body itself. There is no involvement of the pedicles or posterior elements. There is no retropulsion identified. The visualized distal part of the spinal cord is normal in appearance. The tip of the conus medullaris is seen at L1. At L1 there is a central intra-endplate depression or Schmorl's node which does exhibit some adjacent marrow edema. Edema is probably associated with the Schmorl's node and degenerative process. There is no definite acute fracture. There is some bone marrow edema as well at the inferior anterior endplate osteophyte of L1. Multilevel desiccation and narrowing of intervertebral discs are demonstrated. Mild multilevel endplate and facet osteophyte formation noted. At L4-5 there is central and lateral recess stenosis. L5-S1 demonstrates narrowing of the lateral recess. The bladder is moderately distended. Impression: Acute vertebral compression fracture of T11 with a mild loss of height, about 20%. No involvement of pedicles or posterior elements. No retropulsion or cord/neural impingement. Schmorl's node with some associated bone marrow edema in the inferior endplate L1. Old compression fractures at T12 and L1 noted as well. Moderate degenerative disease involving the vertebral endplates, discs, facets. L4-5 notable for lateral recess, central stenosis. L5-S1 notable for lateral recess stenosis. Distended urinary bladder
--- NOTE | 2017-08-18 11:35 | General Progress Note ---
Assessment/Plan Status: stable Assessment/Plan - Renal failure due to Hydronephrosis , Urinary retention and Ovarian cysts - Acute pyelonephritis - Maxillary sinusitis, acute - Sepsis - Adrenal mass - Hydronephrosis - Lumbar compression Fx - At fib Plan: Slow hydrate- today's labs pending avoid nephrotoxics- Gastric support- Keep BP and BS in check per orders Subjective ROS Limited/Unobtainable: No Constitutional: Reports: malaise, weakness Allergies: Coded Allergies: No Known Allergies (Unverified , 08/16/17) Objective Last 24 Hour Vital Signs Date Time Temp Pulse Resp B/P (MAP) Pulse Ox O2 Delivery O2 Flow Rate FiO2 08/18/17 08:30 65 151/74 08/18/17 08:29 65 151/74 08/18/17 08:00 83 08/18/17 07:27 98.4 65 18 151/74 96 Room Air 08/18/17 07:21 97.0 74 18 144/77 93 Room Air 08/18/17 05:00 105 142/76 96 Room Air 08/18/17 04:15 130 153/100 08/18/17 04:00 123 08/18/17 04:00 98.0 103 24 132/71 94 Room Air 08/18/17 00:22 97.9 82 20 154/83 97 Room Air 08/18/17 00:00 90 08/17/17 20:00 104 08/17/17 20:00 97.7 94 22 141/67 Room Air 08/17/17 16:00 88 08/17/17 16:00 97.2 65 18 154/60 97 Room Air 08/17/17 13:31 85 155/85 08/17/17 11:49 86 08/17/17 11:36 97.0 75 18 155/95 97 Room Air Intake and Output 08/18/17 08/19/17 19:00 07:00 Intake Total 230 ml Balance 230 ml IV Total 230 ml Laboratory Tests 08/17/17 22:10: Urine Random Sodium 46 Height (Feet): 5 Height (Inches): 3.00 Weight (Pounds): 160 General Appearance: no apparent distress Objective no change in PE THALIA MOREIRA Aug 18, 2017 11:35
[2017-08-18 13:19] LABS: BASOPHILS % (AUTO) 1.5 % (0.0-2.0); EOSINOPHILS % (AUTO) 2.1 % (0.0-3.0); LYMPHOCYTES % (AUTO) 12.3 % (20.0-45.0); MEAN CORPUSCULAR HEMOGLOBIN 30.1 PG (27.0-31.0); MEAN CORPUSCULAR HGB CONC 31.5 G/DL (32.0-36.0); MEAN CORPUSCULAR VOLUME 95 FL (80-99); MEAN PLATELET VOLUME 6.3 FL (6.5-10.1); MONOCYTES % (AUTO) 7.5 % (1.0-10.0); NEUTROPHILS % (AUTO) 76.7 % (45.0-75.0); PLATELET COUNT 285 K/UL (150-450); RED BLOOD COUNT 3.95 M/UL (4.20-5.40); RED CELL DISTRIBUTION WIDTH 13.3 % (11.6-14.8); WHITE BLOOD COUNT 6.1 K/UL (4.8-10.8)
[2017-08-18 13:27] LABS: ALANINE AMINOTRANSFERASE 6 U/L (3-33); ALBUMIN/GLOBULIN RATIO 0.8 (1.0-2.7); ANION GAP 14 (5-15); ASPARTATE AMINO TRANSFERASE 14 U/L (5-40); CARBON DIOXIDE 23 mEQ/L (20-30); CHLORIDE 104 mEQ/L (98-107); CHOLESTEROL 126 mg/dL (< 200); CHOLESTEROL/HDL RATIO 2.1 (3.3-4.4); CREATININE 1.3 mg/dL (0.5-0.9); CRP QUANT 4.3 mg/dL (< 0.5); LDL CHOLESTEROL CALC 55 mg/dL (60-99); PHOSPHORUS 3.5 mg/dL (2.5-4.8); POTASSIUM 4.1 mEQ/L (3.4-4.9); SODIUM 141 mEQ/L (135-145); TOTAL PROTEIN 7.4 g/dL (6.6-8.7); URIC ACID 7.8 mg/dL (3.0-7.5)
[2017-08-18 13:39] LABS: FERRITIN 232 ng/mL (13-150)
[2017-08-18 14:02] LABS: HEMOGLOBIN A1C 5.6 % (< 6.0)
[2017-08-18 14:28] LABS: HEMOLYSIS 0; IRON 56 ug/dL (37-145); TOTAL IRON BINDING CAPACITY 221 ug/dL (250-400)
--- NOTE | 2017-08-18 16:02 | Infectious Diseases Prog Note ---
Assessment/Plan Problems: (1) Acute pyelonephritis Assessment & Plan: on cefepime empirically pending urine culture results (2) Maxillary sinusitis, acute Assessment & Plan: on cefepime and metronidazol empiric treatment (3) Sepsis Assessment & Plan: due to the above, continue cefepime and metronidazol , pending blood culture results (4) Adrenal mass Assessment & Plan: recommend MRI and endocrinology eval (5) Hydronephrosis Assessment & Plan: rule out obstructive uropathy , recommend urology eval Subjective ROS Limited/Unobtainable: Yes Allergies: Coded Allergies: No Known Allergies (Unverified , 08/16/17) Subjective she was awake, and comfortable, up in bed, not in distress, afebrile Objective Vital Signs Last 24 Hour Vital Signs Date Time Temp Pulse Resp B/P (MAP) Pulse Ox O2 Delivery O2 Flow Rate FiO2 08/18/17 12:00 95 08/18/17 11:50 97.7 88 18 152/79 92 Room Air 08/18/17 08:30 65 151/74 08/18/17 08:29 65 151/74 08/18/17 08:00 83 08/18/17 07:27 98.4 65 18 151/74 96 Room Air 08/18/17 07:21 97.0 74 18 144/77 93 Room Air 08/18/17 05:00 105 142/76 96 Room Air 08/18/17 04:15 130 153/100 08/18/17 04:00 123 08/18/17 04:00 98.0 103 24 132/71 94 Room Air 08/18/17 00:22 97.9 82 20 154/83 97 Room Air 08/18/17 00:00 90 08/17/17 20:00 104 08/17/17 20:00 97.7 94 22 141/67 Room Air Height (Feet): 5 Height (Inches): 3.00 Weight (Pounds): 160 General Appearance: WD/WN, no acute distress HEENT: normocephalic, atraumatic, anicteric, mucous membranes moist Respiratory/Chest: chest wall non-tender, lungs clear, normal breath sounds, no respiratory distress, no accessory muscle use Cardiovascular: normal peripheral pulses, normal rate, regular rhythm, no gallop/murmur, no JVD Abdomen: normal bowel sounds, soft, non tender, no organomegaly, non distended , no mass, no scars Extremities: no cyanosis, no clubbing Skin: no rash, no lesions, no ulcers Neurologic/Psychiatric: alert, oriented x 3 Lymphatic: no neck adenopathy, no groin adenopathy Microbiology Date/Time Source Procedure Growth Status 08/16/17 16:10 Blood Blood Culture - Preliminary NO GROWTH AFTER 24 HOURS Resulted 08/16/17 16:10 Blood Blood Culture - Preliminary NO GROWTH AFTER 24 HOURS Resulted 08/16/17 19:25 Urine,Clean Catch Urine Culture - Preliminary NO GROWTH AFTER 24 HOURS Resulted Laboratory Tests Test 08/17/17 22:10 08/18/17 13:00 Urine Random Sodium 46 mmol/L White Blood Count 6.1 K/UL (4.8-10.8) Red Blood Count 3.95 M/UL (4.20-5.40) L Hemoglobin 11.9 G/DL (12.0-16.0) L Hematocrit 37.7 % (37.0-47.0) Mean Corpuscular Volume 95 FL (80-99) Mean Corpuscular Hemoglobin 30.1 PG (27.0-31.0) Mean Corpuscular Hemoglobin Concent 31.5 G/DL (32.0-36.0) L Red Cell Distribution Width 13.3 % (11.6-14.8) Platelet Count 285 K/UL (150-450) Mean Platelet Volume 6.3 FL (6.5-10.1) L Neutrophils (%) (Auto) 76.7 % (45.0-75.0) H Lymphocytes (%) (Auto) 12.3 % (20.0-45.0) L Monocytes (%) (Auto) 7.5 % (1.0-10.0) Eosinophils (%) (Auto) 2.1 % (0.0-3.0) Basophils (%) (Auto) 1.5 % (0.0-2.0) Sodium Level 141 mEQ/L (135-145) Potassium Level 4.1 mEQ/L (3.4-4.9) Chloride Level 104 mEQ/L (98-107) Carbon Dioxide Level 23 mEQ/L (20-30) Anion Gap 14 (5-15) Blood Urea Nitrogen 31 mg/dL (7-23) H Creatinine 1.3 mg/dL (0.5-0.9) H Estimat Glomerular Filtration Rate mL/min (>60) Glucose Level 111 mg/dL (74-106) H Hemoglobin A1c 5.6 % (< 6.0) Uric Acid 7.8 mg/dL (3.0-7.5) H Calcium Level 9.0 mg/dL (8.6-10.2) Phosphorus Level 3.5 mg/dL (2.5-4.8) Magnesium Level 2.0 mg/dL (1.7-2.5) Iron Level 56 ug/dL (37-145) Total Iron Binding Capacity 221 ug/dL (250-400) L Percent Iron Saturation 25 % (15-50) Unsaturated Iron Binding 165 ug/dL (112-346) Ferritin 232 ng/mL (13-150) H Total Bilirubin 0.7 mg/dL (0.0-1.2) Gamma Glutamyl Transpeptidase 26 U/L (5-36) Aspartate Amino Transf (AST/SGOT) 14 U/L (5-40) Alanine Aminotransferase (ALT/SGPT) 6 U/L (3-33) Alkaline Phosphatase 82 U/L (35-104) Total Creatine Kinase 34 U/L (26-140) C-Reactive Protein, Quantitative 4.3 mg/dL (< 0.5) H Pro-B-Type Natriuretic Peptide 73053 pg/mL (0-450) H Total Protein 7.4 g/dL (6.6-8.7) Albumin 3.3 g/dL (3.5-5.2) L Globulin 4.1 g/dL Albumin/Globulin Ratio 0.8 (1.0-2.7) L Triglycerides Level 48 mg/dL (< 150) Cholesterol Level 126 mg/dL (< 200) LDL Cholesterol 55 mg/dL (60-99) L HDL Cholesterol 61 mg/dL (> 60) H Cholesterol/HDL Ratio 2.1 (3.3-4.4) L Vitamin B12 Level 620 pg/mL (211-946) Folate Pending Thyroid Stimulating Hormone (TSH) 1.920 uIU/mL (0.300-4.500) Current Medications Medications (Trade) Dose Ordered Sig/Trisha Route PRN Reason Start Time Stop Time Status Last Admin Dose Admin Acetaminophen (Tylenol) 650 mg Q4H PRN ORAL Mild Pain/Temp > 100.5 08/16/17 23:15 09/15/17 23:14 Amlodipine Besylate (Norvasc) 5 mg BID ORAL 08/18/17 18:00 09/16/17 11:59 Cefepime HCl 1 gm/ Dextrose 55 ml @ 110 mls/hr Q24H IVPB 08/17/17 09:00 08/24/17 08:59 08/18/17 08:30 Dextrose (Dextrose 50%) STAT PRN IV Hypoglycemia 08/16/17 23:15 09/15/17 23:14 Docusate Sodium (Colace) 100 mg THREE TIMES A DAY ORAL 08/17/17 13:00 09/16/17 12:59 08/18/17 13:09 Metoprolol Tartrate (Lopressor) 100 mg EVERY 12 HOURS ORAL 08/18/17 09:00 09/17/17 08:59 08/18/17 08:29 Metronidazole (Flagyl) 500 mg Q8HR ORAL 08/16/17 22:15 08/23/17 22:14 08/18/17 13:09 Pantoprazole (Protonix) 40 mg DAILY ORAL 08/17/17 12:05 09/16/17 12:04 08/18/17 08:29 Sodium Chloride 1,000 ml @ 50 mls/hr Q20H IV 08/17/17 12:00 09/16/17 11:59 08/18/17 06:01 Diann Delgadillo M.D. Aug 18, 2017 16:02
--- NOTE | 2017-08-18 18:18 | General Progress Note ---
Assessment/Plan Problem List: (1) Sepsis ICD Codes: A41.9 - Sepsis, unspecified organism SNOMED: 28900395 (2) Lumbar compression fracture ICD Codes: S32.000A - Wedge compression fracture of unspecified lumbar vertebra , initial encounter for closed fracture SNOMED: 283670833 (3) Acute pyelonephritis ICD Codes: N10 - Acute pyelonephritis SNOMED: 29227314 (4) Adrenal mass ICD Codes: E27.9 - Disorder of adrenal gland, unspecified SNOMED: 687508836 (5) Generalized weakness ICD Codes: R53.1 - Weakness SNOMED: 46874805 Status: progressing Assessment/Plan afebrile spine fracture reviewed chart and labs sepsis abx per id Subjective ROS Limited/Unobtainable: Yes Constitutional: Reports: no symptoms Allergies: Coded Allergies: No Known Allergies (Unverified , 08/16/17) Objective Last 24 Hour Vital Signs Date Time Temp Pulse Resp B/P (MAP) Pulse Ox O2 Delivery O2 Flow Rate FiO2 08/18/17 16:00 97.7 95 21 124/69 93 Room Air 08/18/17 12:00 95 08/18/17 11:50 97.7 88 18 152/79 92 Room Air 08/18/17 08:30 65 151/74 08/18/17 08:29 65 151/74 08/18/17 08:00 83 08/18/17 07:27 98.4 65 18 151/74 96 Room Air 08/18/17 07:21 97.0 74 18 144/77 93 Room Air 08/18/17 05:00 105 142/76 96 Room Air 08/18/17 04:15 130 153/100 08/18/17 04:00 123 08/18/17 04:00 98.0 103 24 132/71 94 Room Air 08/18/17 00:22 97.9 82 20 154/83 97 Room Air 08/18/17 00:00 90 08/17/17 20:00 104 08/17/17 20:00 97.7 94 22 141/67 Room Air Intake and Output 08/18/17 08/19/17 19:00 07:00 Intake Total 580 ml Output Total 450 ml Balance 130 ml IV Total 580 ml Output Urine Total 450 ml # Bowel Movements 1 Laboratory Tests 08/17/17 22:10: Urine Random Sodium 46 08/18/17 13:00: White Blood Count 6.1, Red Blood Count 3.95L, Hemoglobin 11.9L, Hematocrit 37.7 , Mean Corpuscular Volume 95, Mean Corpuscular Hemoglobin 30.1, Mean Corpuscular Hemoglobin Concent 31.5L, Red Cell Distribution Width 13.3, Platelet Count 285, Mean Platelet Volume 6.3L, Neutrophils (%) (Auto) 76.7H, Lymphocytes (%) (Auto) 12.3L, Monocytes (%) (Auto) 7.5, Eosinophils (%) (Auto) 2.1, Basophils (%) (Auto) 1.5, Sodium Level 141, Potassium Level 4.1, Chloride Level 104, Carbon Dioxide Level 23, Anion Gap 14, Blood Urea Nitrogen 31H, Creatinine 1.3H, Estimat Glomerular Filtration Rate , Glucose Level 111H, Hemoglobin A1c 5.6, Uric Acid 7.8H, Calcium Level 9.0, Phosphorus Level 3.5, Magnesium Level 2.0, Iron Level 56, Total Iron Binding Capacity 221L, Percent Iron Saturation 25, Unsaturated Iron Binding 165, Ferritin 232H, Total Bilirubin 0.7, Gamma Glutamyl Transpeptidase 26, Aspartate Amino Transf (AST/ SGOT) 14, Alanine Aminotransferase (ALT/SGPT) 6, Alkaline Phosphatase 82, Total Creatine Kinase 34, C-Reactive Protein, Quantitative 4.3H, Pro-B-Type Natriuretic Peptide 47794Z, Total Protein 7.4, Albumin 3.3L, Globulin 4.1, Albumin/Globulin Ratio 0.8L, Triglycerides Level 48, Cholesterol Level 126, LDL Cholesterol 55L, HDL Cholesterol 61H, Cholesterol/HDL Ratio 2.1L, Vitamin B12 Level 620, Folate [Pending], Thyroid Stimulating Hormone (TSH) 1.920 Height (Feet): 5 Height (Inches): 3.00 Weight (Pounds): 160 Abdomen: soft Shara Sanchez MD Aug 18, 2017 18:18
--- NOTE | 2017-08-18 22:18 | Cardiology Progress Note ---
Assessment/Plan Assessment/Plan 1. Chronic atrial fibrillation, on metoprolol, consider anticoag therapy. 2. Acute kidney injury, due to obstructive uropathy, improving. 3. Hypertension, continue amlodipine and metoprolol. 4. Lumbar vertebral compression fracture. Subjective Subjective Atrial fibrillation with ventricular response around 81-83. Objective Last 24 Hour Vital Signs Date Time Temp Pulse Resp B/P (MAP) Pulse Ox O2 Delivery O2 Flow Rate FiO2 08/18/17 21:48 81 148/87 08/18/17 20:00 97.3 83 20 153/91 94 Room Air 08/18/17 18:19 95 124/69 08/18/17 16:00 82 08/18/17 16:00 97.7 95 21 124/69 93 Room Air 08/18/17 12:00 95 08/18/17 11:50 97.7 88 18 152/79 92 Room Air 08/18/17 08:30 65 151/74 08/18/17 08:29 65 151/74 08/18/17 08:00 83 08/18/17 07:27 98.4 65 18 151/74 96 Room Air 08/18/17 07:21 97.0 74 18 144/77 93 Room Air 08/18/17 05:00 105 142/76 96 Room Air 08/18/17 04:15 130 153/100 08/18/17 04:00 123 08/18/17 04:00 98.0 103 24 132/71 94 Room Air 08/18/17 00:22 97.9 82 20 154/83 97 Room Air 08/18/17 00:00 90 Intake and Output 08/18/17 08/19/17 19:00 07:00 Intake Total 630 ml Output Total 450 ml Balance 180 ml IV Total 630 ml Output Urine Total 450 ml # Bowel Movements 1 2D Echo: LVEF 60%, Mod LVH, FAINA, Mod MR, Mild AR, RVSP 57 mmHg Laboratory Tests Test 08/18/17 13:00 White Blood Count 6.1 K/UL (4.8-10.8) Red Blood Count 3.95 M/UL (4.20-5.40) L Hemoglobin 11.9 G/DL (12.0-16.0) L Hematocrit 37.7 % (37.0-47.0) Mean Corpuscular Volume 95 FL (80-99) Mean Corpuscular Hemoglobin 30.1 PG (27.0-31.0) Mean Corpuscular Hemoglobin Concent 31.5 G/DL (32.0-36.0) L Red Cell Distribution Width 13.3 % (11.6-14.8) Platelet Count 285 K/UL (150-450) Mean Platelet Volume 6.3 FL (6.5-10.1) L Neutrophils (%) (Auto) 76.7 % (45.0-75.0) H Lymphocytes (%) (Auto) 12.3 % (20.0-45.0) L Monocytes (%) (Auto) 7.5 % (1.0-10.0) Eosinophils (%) (Auto) 2.1 % (0.0-3.0) Basophils (%) (Auto) 1.5 % (0.0-2.0) Sodium Level 141 mEQ/L (135-145) Potassium Level 4.1 mEQ/L (3.4-4.9) Chloride Level 104 mEQ/L (98-107) Carbon Dioxide Level 23 mEQ/L (20-30) Anion Gap 14 (5-15) Blood Urea Nitrogen 31 mg/dL (7-23) H Creatinine 1.3 mg/dL (0.5-0.9) H Estimat Glomerular Filtration Rate mL/min (>60) Glucose Level 111 mg/dL (74-106) H Hemoglobin A1c 5.6 % (< 6.0) Uric Acid 7.8 mg/dL (3.0-7.5) H Calcium Level 9.0 mg/dL (8.6-10.2) Phosphorus Level 3.5 mg/dL (2.5-4.8) Magnesium Level 2.0 mg/dL (1.7-2.5) Iron Level 56 ug/dL (37-145) Total Iron Binding Capacity 221 ug/dL (250-400) L Percent Iron Saturation 25 % (15-50) Unsaturated Iron Binding 165 ug/dL (112-346) Ferritin 232 ng/mL (13-150) H Total Bilirubin 0.7 mg/dL (0.0-1.2) Gamma Glutamyl Transpeptidase 26 U/L (5-36) Aspartate Amino Transf (AST/SGOT) 14 U/L (5-40) Alanine Aminotransferase (ALT/SGPT) 6 U/L (3-33) Alkaline Phosphatase 82 U/L (35-104) Total Creatine Kinase 34 U/L (26-140) C-Reactive Protein, Quantitative 4.3 mg/dL (< 0.5) H Pro-B-Type Natriuretic Peptide 25813 pg/mL (0-450) H Total Protein 7.4 g/dL (6.6-8.7) Albumin 3.3 g/dL (3.5-5.2) L Globulin 4.1 g/dL Albumin/Globulin Ratio 0.8 (1.0-2.7) L Triglycerides Level 48 mg/dL (< 150) Cholesterol Level 126 mg/dL (< 200) LDL Cholesterol 55 mg/dL (60-99) L HDL Cholesterol 61 mg/dL (> 60) H Cholesterol/HDL Ratio 2.1 (3.3-4.4) L Vitamin B12 Level 620 pg/mL (211-946) Folate Pending Thyroid Stimulating Hormone (TSH) 1.920 uIU/mL (0.300-4.500) Microbiology Date/Time Source Procedure Growth Status 08/16/17 16:10 Blood Blood Culture - Preliminary NO GROWTH AFTER 24 HOURS Resulted 08/16/17 16:10 Blood Blood Culture - Preliminary NO GROWTH AFTER 24 HOURS Resulted 08/16/17 19:25 Urine,Clean Catch Urine Culture - Preliminary NO GROWTH AFTER 24 HOURS Resulted Objective HEENT: atraumatic, normocephalic, PERRLA, EOMI. Neck: Negative JVD, no carotid bruit, carotid upstroke 2+ B/L CVS: Normal S1S2, irregularly irregular rhythm, 2/6 MSM at LSB Lungs: Clear with no rales or rhonchi Gastrointestinal: normal bowel sounds, soft, no guarding, suprapubic tenderness Genitourinary: no CVA tenderness Musculoskeletal: no edema, clubbing or cyanosis. Neurologic: normal inspection, alert, responsive, speech normal SARITA DOTSON Aug 18, 2017 22:18
[2017-08-19 00:05] VITALS: BP 154/78
[2017-08-19 04:03] VITALS: BP 158/79
[2017-08-19] MEDS: metroNIDAZOLE 500mg tab ORAL SCH ×2 (06:47→13:58)
[2017-08-19 08:00] VITALS: BP 153/96
[2017-08-19] MEDS: Docusate 100mg cap ORAL SCH ×3 (08:31→17:23)
[2017-08-19] MEDS: Cefepime 1gm in D5W 55ml IVPB SCH (08:32)
[2017-08-19] MEDS ORDERED: NORVASC5 MG ORAL (09:49)
[2017-08-19] MEDS ORDERED: ACETAMINOPHEN325 M1 ORAL (09:49)
[2017-08-19] MEDS ORDERED: COLACE100 MG ORAL (09:49)
[2017-08-19] MEDS ORDERED: METOPROLOL TAR100 M1 ORAL (09:50)
[2017-08-19] MEDS ORDERED: PROTONIX40 MG ORAL (09:50)
[2017-08-19] MEDS ORDERED: LEVAQUIN500 MG ORAL (09:51)
[2017-08-19] MEDS ORDERED: METRONIDAZOLE500 MG ORAL (09:51)
[2017-08-19 12:00] VITALS: BP 148/74
--- NOTE | 2017-08-19 13:26 | General Progress Note ---
Assessment/Plan Problem List: (1) Sepsis ICD Codes: A41.9 - Sepsis, unspecified organism SNOMED: 70002685 (2) Lumbar compression fracture ICD Codes: S32.000A - Wedge compression fracture of unspecified lumbar vertebra , initial encounter for closed fracture SNOMED: 088300262 (3) Acute pyelonephritis ICD Codes: N10 - Acute pyelonephritis SNOMED: 81615396 (4) Adrenal mass ICD Codes: E27.9 - Disorder of adrenal gland, unspecified SNOMED: 852302387 (5) Generalized weakness ICD Codes: R53.1 - Weakness SNOMED: 99331012 Status: progressing Assessment/Plan dc to snf not safe to go home fall risk sepsis anorexia abx per id Subjective Constitutional: Reports: no symptoms Allergies: Coded Allergies: No Known Allergies (Unverified , 08/16/17) Objective Last 24 Hour Vital Signs Date Time Temp Pulse Resp B/P (MAP) Pulse Ox O2 Delivery O2 Flow Rate FiO2 08/19/17 12:00 97.2 76 21 148/74 93 Room Air 08/19/17 08:31 77 158/79 08/19/17 08:31 77 158/79 08/19/17 08:00 103 08/19/17 08:00 76 18 153/96 93 Room Air 08/19/17 04:03 97.5 77 20 158/79 94 Room Air 08/19/17 04:00 81 08/19/17 00:05 97.0 87 16 154/78 94 Room Air 08/19/17 00:00 79 08/18/17 21:48 81 148/87 08/18/17 20:00 97.3 83 20 153/91 94 Room Air 08/18/17 18:19 95 124/69 08/18/17 16:00 82 08/18/17 16:00 97.7 95 21 124/69 93 Room Air Intake and Output 08/19/17 08/20/17 19:00 07:00 Intake Total 255 ml Balance 255 ml IV Total 255 ml Height (Feet): 5 Height (Inches): 3.00 Weight (Pounds): 160 General Appearance: confused Cardiovascular: normal rate Respiratory/Chest: lungs clear Shara Sanchez MD Aug 19, 2017 13:26
--- NOTE | 2017-08-19 13:36 | General Progress Note ---
Assessment/Plan Status: stable Status Narrative Cr lower Assessment/Plan - Renal failure due to Hydronephrosis , Urinary retention and Ovarian cysts - Acute pyelonephritis - Maxillary sinusitis, acute - Sepsis - Adrenal mass - Hydronephrosis - Lumbar compression Fx - At fib Plan: Slow hydrate- avoid nephrotoxics- Gastric support- Keep BP and BS in check per orders Subjective ROS Limited/Unobtainable: No Constitutional: Reports: malaise, weakness Allergies: Coded Allergies: No Known Allergies (Unverified , 08/16/17) Objective Last 24 Hour Vital Signs Date Time Temp Pulse Resp B/P (MAP) Pulse Ox O2 Delivery O2 Flow Rate FiO2 08/19/17 12:00 97.2 76 21 148/74 93 Room Air 08/19/17 08:31 77 158/79 08/19/17 08:31 77 158/79 08/19/17 08:00 103 08/19/17 08:00 76 18 153/96 93 Room Air 08/19/17 04:03 97.5 77 20 158/79 94 Room Air 08/19/17 04:00 81 08/19/17 00:05 97.0 87 16 154/78 94 Room Air 08/19/17 00:00 79 08/18/17 21:48 81 148/87 08/18/17 20:00 97.3 83 20 153/91 94 Room Air 08/18/17 18:19 95 124/69 08/18/17 16:00 82 08/18/17 16:00 97.7 95 21 124/69 93 Room Air Intake and Output 08/19/17 08/20/17 19:00 07:00 Intake Total 255 ml Balance 255 ml IV Total 255 ml Height (Feet): 5 Height (Inches): 3.00 Weight (Pounds): 160 General Appearance: no apparent distress Objective no change in PE THALIA MOREIRA Aug 19, 2017 13:36
[2017-08-19 16:00] VITALS: BP 155/88
--- NOTE | 2017-08-19 16:06 | Infectious Diseases Prog Note ---
Assessment/Plan Problems: (1) Acute pyelonephritis Assessment & Plan: on cefepime empirically , urine culture is negative will switch to levaquin empirically for 7 more days (2) Maxillary sinusitis, acute Assessment & Plan: on cefepime and metronidazol empiric treatment, will switch cefepime to Levaquin and continue metronidazole for 7 more days (3) Sepsis Assessment & Plan: due to the above, on cefepime and metronidazol , blood culture is negative (4) Hydronephrosis Assessment & Plan: rule out obstructive uropathy , keep bill, follow up with urology . Subjective ROS Limited/Unobtainable: Yes Allergies: Coded Allergies: No Known Allergies (Unverified , 08/16/17) Subjective she was awake, and comfortable, up in bed, not in distress, afebrile Objective Vital Signs Last 24 Hour Vital Signs Date Time Temp Pulse Resp B/P (MAP) Pulse Ox O2 Delivery O2 Flow Rate FiO2 08/19/17 12:00 85 08/19/17 12:00 97.2 76 21 148/74 93 Room Air 08/19/17 08:31 77 158/79 08/19/17 08:31 77 158/79 08/19/17 08:00 103 08/19/17 08:00 76 18 153/96 93 Room Air 08/19/17 04:03 97.5 77 20 158/79 94 Room Air 08/19/17 04:00 81 08/19/17 00:05 97.0 87 16 154/78 94 Room Air 08/19/17 00:00 79 08/18/17 21:48 81 148/87 08/18/17 20:00 97.3 83 20 153/91 94 Room Air 08/18/17 18:19 95 124/69 Height (Feet): 5 Height (Inches): 3.00 Weight (Pounds): 160 General Appearance: WD/WN, no acute distress HEENT: normocephalic, atraumatic, anicteric, mucous membranes moist, PERRL, EOMI, pharynx normal, supple, no JVD Respiratory/Chest: chest wall non-tender, normal breath sounds, no respiratory distress, no accessory muscle use, decreased breath sounds Cardiovascular: normal peripheral pulses, normal rate, regular rhythm, no gallop/murmur, no JVD Abdomen: normal bowel sounds, soft, non tender, no organomegaly, non distended , no mass, no scars Genitourinary: normal external genitalia Extremities: no cyanosis, no clubbing Skin: no rash, no lesions, no ulcers Neurologic/Psychiatric: alert, responsive Lymphatic: no neck adenopathy, no groin adenopathy Microbiology Date/Time Source Procedure Growth Status 08/16/17 16:10 Blood Blood Culture - Preliminary NO GROWTH AFTER 48 HOURS Resulted 08/16/17 16:10 Blood Blood Culture - Preliminary NO GROWTH AFTER 48 HOURS Resulted 08/16/17 19:25 Urine,Clean Catch Urine Culture - Final NO GROWTH AFTER 48 HOURS Complete Current Medications Medications (Trade) Dose Ordered Sig/Trisha Route PRN Reason Start Time Stop Time Status Last Admin Dose Admin Acetaminophen (Tylenol) 650 mg Q4H PRN ORAL Mild Pain/Temp > 100.5 08/16/17 23:15 09/15/17 23:14 Amlodipine Besylate (Norvasc) 5 mg BID ORAL 08/18/17 18:00 09/16/17 11:59 08/19/17 08:31 Cefepime HCl 1 gm/ Dextrose 55 ml @ 110 mls/hr Q24H IVPB 08/17/17 09:00 08/24/17 08:59 08/19/17 08:32 Dextrose (Dextrose 50%) STAT PRN IV Hypoglycemia 08/16/17 23:15 09/15/17 23:14 Docusate Sodium (Colace) 100 mg THREE TIMES A DAY ORAL 08/17/17 13:00 09/16/17 12:59 08/19/17 13:59 Metoprolol Tartrate (Lopressor) 100 mg EVERY 12 HOURS ORAL 08/18/17 09:00 09/17/17 08:59 08/19/17 08:31 Metronidazole (Flagyl) 500 mg Q8HR ORAL 08/16/17 22:15 08/23/17 22:14 08/19/17 13:58 Pantoprazole (Protonix) 40 mg DAILY ORAL 08/17/17 12:05 09/16/17 12:04 08/19/17 08:31 Sodium Chloride 1,000 ml @ 50 mls/hr Q20H IV 08/17/17 12:00 09/16/17 11:59 08/19/17 04:00 Diann Delgadillo M.D. Aug 19, 2017 16:06
[2017-08-19 17:22] VITALS: BP 155/88
[2017-08-19] MEDS ORDERED: Tubing IV Secondary IV ONE (19:59)
[2017-08-19] MEDS ORDERED: NS 275ml ONE (19:59)
--- NOTE | 2017-08-20 | Cardiology Progress Note ---
Assessment/Plan Assessment/Plan 1. Chronic atrial fibrillation, on metoprolol, consider anticoag therapy 2. Acute kidney injury, due to obstructive uropathy, improving. 3. Hypertension, continue amlodipine and metoprolol. 4. Lumbar vertebral compression fracture. Subjective Subjective Atrial fibrillation with ventricular response around 67. Objective Last 24 Hour Vital Signs Date Time Temp Pulse Resp B/P (MAP) Pulse Ox O2 Delivery O2 Flow Rate FiO2 08/19/17 17:22 67 155/88 08/19/17 16:00 90 08/19/17 16:00 96.8 67 20 155/88 96 Room Air 08/19/17 12:00 85 08/19/17 12:00 97.2 76 21 148/74 93 Room Air 08/19/17 08:31 77 158/79 08/19/17 08:31 77 158/79 08/19/17 08:00 103 08/19/17 08:00 76 18 153/96 93 Room Air 08/19/17 04:03 97.5 77 20 158/79 94 Room Air 08/19/17 04:00 81 08/19/17 00:05 97.0 87 16 154/78 94 Room Air 2D Echo: LVEF 60%, Mod LVH, FAINA, Mod MR, Mild AR, RVSP 57 mmHg Objective HEENT: atraumatic, normocephalic, PERRLA, EOMI. Neck: Negative JVD, no carotid bruit, carotid upstroke 2+ B/L CVS: Normal S1S2, irregularly irregular rhythm, 2/6 MSM at LSB Lungs: Clear with no rales or rhonchi Gastrointestinal: normal bowel sounds, soft, no guarding, suprapubic tenderness Genitourinary: no CVA tenderness Musculoskeletal: no edema, clubbing or cyanosis. Neurologic: normal inspection, alert, responsive, speech normal SARITA DOTSON Aug 20, 2017 00:00
--- NOTE | 2017-08-20 02:14 | Cardiology Report ---
APPROVED REPORT EKG Measurement Heart [id number] Atrial fibrillation Prolonged QT Abnormal ECG
[2017-08-20] MEDS ORDERED: Levofloxacin 500mg tab ORAL SCH (09:00)
--- NOTE | 2017-08-22 08:31 | Cardiology Report ---
APPROVED REPORT EXAM: Two-dimensional and M-mode echocardiogram with Doppler and color Doppler. INDICATION Congestive Heart Failure M-Mode DIMENSIONS IVSd1.8 (0.7-1.1cm)Left Atrium (MM)3.9 (1.6-4.0cm) LVDd6.4 (3.5-5.6cm)Aortic Root2.5 (2.0-3.7cm) PWd1.4 (0.7-1.1cm)Aortic Cusp Exc.1.5 (1.5-2.0cm) LVDs5.1 (2.5-4.0cm) PWs1.7 cm This is limited Echo study. Pt requested to end the test early. Normal left ventricular chamber size, systolic function and wall motion to extent visualized. Left ventricular ejection fraction estimated to be 60-65 %. Study quality precludes accurate assessment of regional wall motion. Moderate left ventricular hypertrophy. Anterior Echo-free space, may be due to pericardial fat or effusion. Moderate bi-atrial enlargement. Right ventricular chamber size is within normal limits. Focal aortic valve sclerosis with adequate cusp excursion. Thickened mitral valve leaflets with normal excursion. Mitral annulus and aortic root calcification. Pulmonic valve not well visualized. Normal tricuspid valve structure. No subcostal views obtained. A color flow and spectral Doppler study was performed and revealed: Mild to moderate aortic regurgitation. Moderate mitral regurgitation. Can not determine left ventricular diastolic function by mitral diastolic velocities due to atrial fibrillation. Moderate tricuspid regurgitation. Tricuspid systolic velocities suggests peak right ventricular systolic pressure of 57 mmHg, consistent with moderate pulmonary hypertension.
--- NOTE | 2017-08-22 09:03 | Consultation ---
DATE OF CONSULTATION: CARDIOLOGY CONSULTATION REFERRING PHYSICIAN: Shara Sanchez M.D. REASON FOR CONSULTATION: Management of atrial fibrillation. HISTORY OF PRESENT ILLNESS: The patient is a very unfortunate 89-year-old female, who presents to the hospital with increased generalized weakness. The patient has had increased difficulty in ambulation in the past 2 weeks. There is also some complaints of abdominal pain. Initial evaluation in the emergency department included vital signs, which revealed a blood pressure 100/60 mmHg, and heart rate of 88. A 12-lead electrocardiogram in the emergency department showed atrial fibrillation with rapid ventricular response with heart rate of 96 prolonged QT interval. The patient was admitted to telemetry for further evaluation and assessment. Cardiology consultation was made at request of Dr. Sanchez to evaluate and manage atrial fibrillation. PAST MEDICAL HISTORY: History of hypertension and history of cardiac disease. LIST OF MEDICATIONS: Acetaminophen 650 mg q.4 h. p.r.n. pain, temperature of 100.5, amlodipine 5 mg p.o. twice daily, Colace 100 mg three times daily, Levaquin 500 mg daily for 7 days, metoprolol 100 mg twice daily, Flagyl 500 mg q.8 h. for 7 days and Protonix 40 mg p.o. daily. PAST SURGICAL HISTORY: None. FAMILY HISTORY: No premature coronary artery disease in the first-degree relatives. REVIEW OF SYSTEMS: HEENT: Denies any headache, diplopia, or blurred vision. CONSTITUTIONAL: Denies any fever, chills, night sweats, or weight loss. Complained of generalized weakness. CARDIOVASCULAR: Denies any chest pain, shortness of breath, PND, orthopnea, or leg swelling. PULMONARY: Denies any cough, hemoptysis, or wheezing. GASTROINTESTINAL: Denies any nausea, vomiting, diarrhea, constipation, abdominal pain, or GI bleed. GENITOURINARY: Denies any hematuria, dysuria, or incontinence. NEUROLOGY: Denies any motor dysfunction, sensory deficit, or altered speech. MUSCULOSKELETAL: Inability to walk and gait imbalance. PHYSICAL EXAMINATION: VITAL SIGNS: Blood pressure on arrival to the hospital was 100/60 elisa to 138/88 mmHg, heart rate 103, temperature is 97.9 degrees Fahrenheit, respirations 18, and O2 saturation 97% on room air. GENERAL: This is a very unfortunate 89-year-old lady who is in moderate respiratory distress. HEENT: Atraumatic and normocephalic. ENT, pupils are equal, round, and reactive to light and accommodation. Extraocular muscles intact. NECK: JVP less than 5 cm. No carotid bruit. Carotid upstrokes 2+ bilaterally. CARDIOVASCULAR: Normal S1 and S2. Irregularly irregular rhythm. Tachycardic. A 2/6 mid systolic murmur at left sternal border. PMI is at fourth intercostal space in the midclavicular line. LUNGS: Clear to auscultation bilaterally. ABDOMEN: Soft, nontender, and nondistended. No hepatosplenomegaly. Positive bowel sounds. EXTREMITIES: No evidence of edema, clubbing, or cyanosis. LABORATORY FINDINGS: WBC was 6.6, hemoglobin 11.7, hematocrit 36.7, and platelet count 276. Sodium 139, potassium 4.1, chloride 98, bicarbonate 26, BUN 52, creatinine 2.0, and glucose is 113. Calcium is 9.4. Magnesium is 2.7. ProBNP was 15,420. Troponin I was less than 0.3. LABORATORY AND DIAGNOSTIC DATA: Chest x-ray showed interstitial edema consistent with mild congestive heart failure. A 12-lead electrocardiogram showed atrial fibrillation with a rate of 96 prolonged QT interval. ASSESSMENT AND PLAN: The patient is a very unfortunate 89-year-old female, seen in Cardiology consultation at request of Dr. Sanchez. 1. Atrial fibrillation with rapid ventricular response. The patient will receive for continuation of better ventricular response. Normal oral anticoagulant therapy should be considered in this patient with high [id number] score. However, due to renal failure, we will place a hold on it until acute kidney injury resolved. We will consider NOAC therapy at the time of discharge. 2. History of hypertension. Continue metoprolol and amlodipine. 3. Lumbar vertebral compression fracture. I would like to thank, Dr. Sanchez for the courtesy of this consultation. Greyson Rhodes M.D. DR: ENE JOB#: [id number] CC:
--- NOTE | 2017-08-22 12:52 | Discharge Summary ---
Discharge Summary Hospital Course Date of Admission Aug 16, 2017 at 16:45 Date of Discharge Aug 19, 2017 at 20:00 Admitting Diagnosis GENERALIZED WEAKNESS HPI Cruz Jay is a 89 year old female who was admitted on Aug 16, 2017 at 16:45 for Generalized Weakness Hospital Course dc summary #[id number] Discharge Medications Continued Medications: Acetaminophen* (Acetaminophen 325MG Tablet*) 325 Mg Tablet 650 MG ORAL Q4H PRN for Mild Pain/Temp > 100.5, TAB Amlodipine Besylate (Norvasc) 5 Mg Tablet 5 MG ORAL TWICE A DAY, TAB Docusate Sodium* (Colace*) 100 Mg Capsule 100 MG ORAL THREE TIMES A DAY, CAP Levofloxacin* (Levaquin*) 500 Mg Tablet 500 MG ORAL DAILY for 7 Days, TAB Metoprolol Tartrate* (Metoprolol Tartrate*) 100 Mg Tablet 100 MG ORAL EVERY 12 HOURS, TAB Metronidazole* (Flagyl*) 500 Mg Tablet 500 MG ORAL EVERY 8 HOURS for 7 Days, TAB Pantoprazole* (Protonix*) 40 Mg Tablet.dr 40 MG ORAL DAILY, TAB Discharge Condition Upon Discharge: stable Discharge Disposition Patient was discharged to [facility] ([facility]) Discharge Diagnoses: Discharge Instructions Discharge Instructions Special Instructions I have been assigned to complete a D/C Summary on this account. I was not involved in the patient management Mary Vidales NP (Vanchtein) Aug 22, 2017 12:52
--- NOTE | 2017-08-23 05:30 | Discharge Summary 2 SIG ---
DATE OF ADMISSION: 08/16/2017 DATE OF DISCHARGE: 08/19/2017 CONSULTANTS: 1. Greyson Rhodes M.D., communication specialist. 2. Diann Delgadillo M.D., infectious disease specialist. 3. Rory Bullard M.D., pain specialist. 4. Eb Ruiz M.D., senior ssis developer. 5. Dr. Bravo, urologist. SHORT HOSPITAL STAY: 89-year-old female with history of hypertension, presented from home where she resides with generalized weakness for the last two weeks. She reported difficulty with ambulating. She also reported some abdominal pain. CT of the abdomen and pelvis revealed markedly distended bladder with mild bilateral hydronephrosis and hydroureter. A 6.9 cm right adnexal mass. Compression at the level T11-T12 and L1 vertebrae. Laboratory workup revealed no leukocytosis and evidence of acute renal failure with BUN -52 and creatinine - 2.0. Lactic acid was within normal limits. Electrolytes were stable. Troponin was negative. Pro-BNP - 15,420. The patient was admitted for further management. Contestant Coordinator seen and evaluated the patient. Patient demonstrated initially atrial fibrillation with rapid ventricular response, rate control was achieved with beta-sugey. The patient continued to be in atrial fibrillation. Contestant Coordinator stated that the patient had chronic atrial fibrillation, and recommended to consider anticoagulation. Anticoagulation was not started due to the high risk for fall, with the risks outweighed the benefits. Blood pressure was managed with beta-sugey and calcium-channel sugey and was stable. Watermelon Inspector followed the patient for acute renal failure, which was secondary to hydronephrosis, urinary retention, and ovarian cyst. Acute renal failure was slowly improving, creatinine down to 1.3. The patient was on the slow hydration. Nephrotoxics were avoided. Gastrointestinal support was provided. Infectious Disease specialist followed the patient. CT of the head revealed evidence of maxillary sinusitis, but no acute intracranial pathology. It also demonstrated moderate atrophy. The patient was on empiric intravenous antibiotics, which optimized upon transfer to [facility] facility upon discharge to oral antibiotics and to be continued for seven more days. . Echocardiogram revealed preserved ejection fraction of 60% to 65%, moderate left ventricular hypertrophy, moderate bilateral atrial enlargement, moderate mitral regurgitation, moderate tricuspid regurgitation, and right ventricular systolic pressure of 57 consistent with moderate pulmonary hypertension. Acute renal failure improved with slow hydration. Creatinine from initial 2 down to 1.3. MRI of the L-spine revealed acute vertebrae, acute compression fracture at the level of T11 with mild loss of height about 20%, as well as moderate degenerative disease involving vertebral endplates, disc, facets. L4-5 notable for lateral recess, central stenosis. L5-S1 notable for lateral recess and stenosis. Distended urinary bladder. Pain management provided and controlled. Pain specialist followed. Urologist seen and evaluated the patient. Per urologist, the patient will need to continue Joshua and will need outpatient urodynamics to evaluate further for bladder dysfunction. The patient was stable for discharge. FINAL DIAGNOSES: 1. Sepsis. 2. Acute pyelonephritis. 3. Maxillary sinusitis. 4. Hydronephrosis. 5. Urinary retention. 6. Atrial fibrillation with rapid ventricular response, resolved. 7. Acute renal failure, secondary to hydronephrosis, urinary retention, and ovarian cyst, improved. 8. Hypertension. 9. Acute vertebral T11 compression fracture. DISCHARGE MEDICATIONS: See medication reconciliation list. DISCHARGE INSTRUCTIONS: The [facility]. Family in agreement. Follow up with medical doctor at the facility. Follow up with the urologist as outpatient for urodynamics to evaluate for bladder dysfunction. Shara Sanchez M.D. I have been assigned to dictate discharge summary on this account and I was not involved in the patient's management. Mary RoperElmhurst Hospital CenterHeavenly N.PMichael DR: JACEK JOB#: [id number] CC: RODNEY
== END 2017-08-19 20:00 | DRG 872 ==
LOC: EDBD 16:00 → EMR 16:40 → 2E 16:45 → EDBEDREQ 18:17
DX: A41.9 Sepsis, unspecified organism (principal); N17.9 Acute kidney failure, unspecified; N13.30 Unspecified hydronephrosis; I27.20 Pulmonary hypertension, unspecified; M48.56XA Collapsed vertebra, not elsewhere classified, lumbar region, initial encounter for fracture; I48.2 Chronic atrial fibrillation; N10 Acute pyelonephritis; J01.00 Acute maxillary sinusitis, unspecified; I10 Essential (primary) hypertension; N83.209 Unspecified ovarian cyst, unspecified side; E27.9 Disorder of adrenal gland, unspecified; M25.552 Pain in left hip; M25.551 Pain in right hip; Z79.01 Long term (current) use of anticoagulants; R33.8 Other retention of urine
CPT/HCPCS: 36415; 70450; 71010; 72148; 74176; 80053; 80061; 81003; 82550; 82553; 82607; 82728; 82746; 82977; 83036; 83540; 83550; 83605; 83735; 83880; 84100; 84300; 84443; 84484; 84550; 85025; 85610; 85730; 86140; 86850; 86900; 86901; 87040; 87086; 93005; 93306; 99285